=== PATIENT | female | born 1965 | race Caucasian/White ===

== ENCOUNTER 2019-08-26 07:22 | Day surgery (SDC) | payer MEDICAID ==
[2019-08-26] VITALS (9 sets, daily range): BP systolic 132–156; BP diastolic 81–109
[~2019-08-26] VITALS: Ht 167.6 cm; Wt 80.0 kg
[~2019-08-26 07:22] MED LIST: APIX5TAB3 PO; ASPI-1071 PO; ATOR10TA87 PO; CARV-50 PO; DIGO125T PO; FURO40TA4 PO; HYDR-3686 PO; LISINOPRIL PO; MELA3TAB64 PO; PANT-47 PO; SPIR25TA5 PO
[2019-08-26] MEDS ORDERED: diphenhydrAMINE 25mg capsule PO PRN (07:40)
[2019-08-26] MEDS ORDERED: ceFAZolin 1,000 MG/D5W 50ML IVPB Premixed bag IV ONE (07:40)
[2019-08-26] MEDS ORDERED: normal saline 1,000 ML IV SCH (07:40)
[2019-08-26] MEDS ORDERED: LORazepam 0.5 MG tablet PO PRN (07:40)
[2019-08-26] MEDS ORDERED: APIX5TAB3 PO (07:48)
[2019-08-26] MEDS ORDERED: POTA20TA19 PO (07:50)
[2019-08-26] MEDS ORDERED: LOSA25TA96 PO (07:53)
[2019-08-26] MEDS ORDERED: CARV-50 PO (07:55)
[2019-08-26] MEDS ORDERED: ASPI81TA52 PO (07:58)
[2019-08-26] MEDS ORDERED: LIDOcaine/PRILOcaine 5gm cream TP ONE (08:20)
[2019-08-26] MEDS ORDERED: proCHLORperazine 10 MG/2 ml inj ONE (09:02)
[2019-08-26] MEDS ORDERED: midazolam 2 mg/2 ml injection ONE ×2 (09:02→09:45)
[2019-08-26] MEDS ORDERED: LIDOcaine 1% (10mg/ml)w/preservative injection 20ml MDV ONE (09:03)
[2019-08-26] MEDS ORDERED: LIDOcaine 1% W/epiNEPHrine 1:100,000 20ml vial ONE (09:03)
[2019-08-26] MEDS ORDERED: vancomycin 1,000mg inj ONE (09:03)
[2019-08-26] MEDS ORDERED: fentaNYL/PF 50MCG/1 ML 2ML syringe ONE (09:03)
[2019-08-26] MEDS ORDERED: ceFAZolin 1000mg inj ONE (09:03)
[2019-08-26] MEDS ORDERED: iohexol 350MG/ML 100ml bottle IV ONE (09:04)
[2019-08-26] MEDS ORDERED: HYDROcodone/acetaminophen 5mg/325mg tablet PO PRN (11:00)
[2019-08-26] MEDS ORDERED: LORazepam 1 MG tablet PO PRN (11:00)
[2019-08-26] MEDS ORDERED: HYDROcodone/acetaminophen 10/325mg tab PO PRN (11:00)
[2019-08-26] MEDS ORDERED: ceFAZolin 1GM/D5W- ADD-VANTAGE 50 ML IV SCH (16:00)
== END 2019-08-26 14:15 | disposition home or self-care (01) ==
LOC: SSTAY O 07:22
PROVIDERS: ATTEND Internal Medicine Interventional Cardiology
DX: I42.8 Other cardiomyopathies (principal); I11.0 Hypertensive heart disease with heart failure; I50.30 Unspecified diastolic (congestive) heart failure; E78.5 Hyperlipidemia, unspecified; F17.210 Nicotine dependence, cigarettes, uncomplicated; I45.89 Other specified conduction disorders; I05.8 Other rheumatic mitral valve diseases; Z88.8 Allergy status to other drugs, medicaments and biological substances; Z79.899 Other long term (current) drug therapy; Z79.82 Long term (current) use of aspirin
CPT/HCPCS: 33249; 93005; 99152; 99153; C1722; C1769; C1896; J0690; J0780; J1644; J2001; J2250; J3010; J3370; J7030; Q0163; Q9967; A4565; A4620; A6258; C1786; C1898

== ENCOUNTER 2019-09-14 10:05 | Emergency (ER) | payer MEDICAID ==
[~2019-09-14] VITALS: Ht 167.6 cm; Wt 68.2 kg
[~2019-09-14 10:05] MED LIST changes: -ASPI-1071 PO; +ASPI81TA52 PO; -HYDR-3686 PO; -LISINOPRIL PO; +LOSA25TA96 PO; -MELA3TAB64 PO; +POTA20TA19 PO; -SPIR25TA5 PO
[2019-09-14] MEDS ORDERED: ipratropium/albuterol 3ml nebule NEB ONE (10:50)
[2019-09-14] MEDS ORDERED: normal saline 1000ML IV soln IV ONE (10:50)
[2019-09-14 11:20] LABS: BASOPHILS # (AUTO) 0.1 X10'3 (0-0.2); BASOPHILS % (AUTO) 1.2 % (0-1); EOSINOPHILS # (AUTO) 0.2 X10'3 (0-0.9); EOSINOPHILS % (AUTO) 2.7 % (0-6); HEMATOCRIT 38.9 % (35.0-45.0); LYMPHOCYTES # (AUTO) 1.2 X10'3 (1.1-4.8); LYMPHOCYTES % (AUTO) 16.3 % (21-51); MEAN CORPUSCULAR HEMOGLOBIN 28.8 PG (27.0-31.0); MEAN CORPUSCULAR HGB CONC 33.5 g/dL (33.0-36.5); MEAN CORPUSCULAR VOLUME 85.8 FL (78-98); MONOCYTES # (AUTO) 0.9 X10'3 (0-0.9); MONOCYTES % (AUTO) 12.5 % (2-12); NEUTROPHILS # (AUTO) 4.8 X10'3 (1.8-7.7); NEUTROPHILS % (AUTO) 67.3 % (42-75); PLATELET COUNT 159 X10'3 (140-440); RED BLOOD COUNT 4.54 X10'6 (4.20-5.60); RED CELL DISTRIBUTION WIDTH 15.6 % (11.5-14.5); WHITE BLOOD COUNT 7.2 X10'3 (4.5-11.0)
[2019-09-14 11:30] LABS: PARTIAL THROMBOPLASTIN TIME 27 SECONDS (22-32)
[2019-09-14 11:40] LABS: CLARITY,URINE CLOUDY (Clear); COLOR,URINE YELLOW (Yellow); GLUCOSE, URINE NEGATIVE (Neg); KETONES,URINE NEGATIVE (Neg); LEUKOCYTE ESTERASE ,URINE NEGATIVE (Neg); NITRITES, URINE NEGATIVE (Neg); OCCULT BLOOD,URINE NEGATIVE (Neg); PH,URINE 5.5 (4.8-8.0); PROTEIN,URINE 100 mg/dl (Neg)
[2019-09-14 11:47] LABS: UA COLLECTION TYPE CLN CATCH MIDSTREAM
[2019-09-14 11:48] LABS: ALANINE AMINOTRANSFERASE 20 U/L (12-78); ALBUMIN 3.6 G/DL (3.4-5.0); ALBUMIN/GLOBULIN RATIO 0.9 (1.1-1.5); ALKALINE PHOSPHATASE 59 IU/L (46-116); ANION GAP 8 (8-16); ASPARTATE AMINO TRANSFERASE 21 U/L (10-37); BILIRUBIN,TOTAL 0.8 MG/DL (0.1-1.0); BLOOD UREA NITROGEN 28 MG/DL (7-18); BUN/CREATININE RATIO 23.1 (6.6-38.0); CHLORIDE 106 MMOL/L (99-107); CREATININE 1.21 MG/DL (0.40-0.90); GLUCOSE 123 MG/DL (70-104); POTASSIUM 4.1 MMOL/L (3.5-5.1); SODIUM 141 MMOL/L (135-145); TOTAL CARBON DIOXIDE 26.8 MMOL/L (24-32); TOTAL PROTEIN 7.5 G/DL (6.4-8.2); eGFR 46 ML/MIN
[2019-09-14 11:49] LABS: SQUAMOUS EPITHELIAL CELL,UR MANY /LPF (FEW)
[2019-09-14 11:53] LABS: HYALINE CASTS 0-3 /LPF (NEGATIVE); MUCUS STRANDS FEW /LPF (Neg)
[2019-09-14 11:55] LABS: BACTERIA,URINE 1+ /HPF (Neg); RBC,URINE 0-2 /HPF (0-2); WBC,URINE 0-4 /HPF (0-4)
[2019-09-14] MEDS ORDERED: albuterol 2.5 MG/3 ML nebule NEB ONE (13:30)
[2019-09-14] MEDS ORDERED: DOXY100C76 PO (13:35)
[2019-09-14] MEDS ORDERED: TAM75C PO (13:35)
[2019-09-14] MEDS ORDERED: ALBU6.7H9 INH (13:35)
[2019-09-14] MEDS ORDERED: PRED20TA PO (13:35)
== END 2019-09-14 14:39 | disposition home or self-care (01) ==
LOC: ER 10:06
DX: J11.1 Influenza due to unidentified influenza virus with other respiratory manifestations (principal); J45.909 Unspecified asthma, uncomplicated; E11.9 Type 2 diabetes mellitus without complications; F41.9 Anxiety disorder, unspecified; I11.0 Hypertensive heart disease with heart failure; I50.9 Heart failure, unspecified; F12.90 Cannabis use, unspecified, uncomplicated; Z88.5 Allergy status to narcotic agent; Z79.82 Long term (current) use of aspirin; Z79.899 Other long term (current) drug therapy; Z87.891 Personal history of nicotine dependence
CPT/HCPCS: 36415; 71045; 80053; 81001; 83605; 84145; 85025; 85610; 85730; 87040; 87502; 87503; 93005; 94640; 99285; J7030

== ENCOUNTER 2019-09-16 06:32 | Day surgery (SDC) | payer MEDICAID ==
[2019-09-12 15:59] LABS: BASOPHILS # (AUTO) 0.1 X10'3 (0-0.2); EOSINOPHILS # (AUTO) 0.1 X10'3 (0-0.9); EOSINOPHILS % (AUTO) 1.2 % (0-6); HEMATOCRIT 40.9 % (35.0-45.0); HEMOGLOBIN 13.7 g/dl (12.0-16.0); LYMPHOCYTES # (AUTO) 1.1 X10'3 (1.1-4.8); LYMPHOCYTES % (AUTO) 12.3 % (21-51); MEAN CORPUSCULAR HEMOGLOBIN 28.3 PG (27.0-31.0); MEAN CORPUSCULAR HGB CONC 33.4 g/dL (33.0-36.5); MEAN CORPUSCULAR VOLUME 84.8 FL (78-98); MEAN PLATELET VOLUME 9.4 FL (7.4-10.4); MONOCYTES # (AUTO) 0.6 X10'3 (0-0.9); MONOCYTES % (AUTO) 6.7 % (2-12); NEUTROPHILS # (AUTO) 6.9 X10'3 (1.8-7.7); NEUTROPHILS % (AUTO) 78.8 % (42-75); PLATELET COUNT 171 X10'3 (140-440); RED BLOOD COUNT 4.83 X10'6 (4.20-5.60); RED CELL DISTRIBUTION WIDTH 15.9 % (11.5-14.5); WHITE BLOOD COUNT 8.8 X10'3 (4.5-11.0)
[2019-09-12 16:05] LABS: ALBUMIN 3.8 G/DL (3.4-5.0); ANION GAP 8 (8-16); BLOOD UREA NITROGEN 28 MG/DL (7-18); BUN/CREATININE RATIO 23.7 (6.6-38.0); CALCIUM 9.2 MG/DL (8.5-10.1); CHLORIDE 105 MMOL/L (99-107); CREATININE 1.18 MG/DL (0.40-0.90); GLUCOSE 128 MG/DL (70-104); SODIUM 141 MMOL/L (135-145); TOTAL CARBON DIOXIDE 28.2 MMOL/L (24-32); eGFR 48 ML/MIN
[2019-09-12 16:10] LABS: PARTIAL THROMBOPLASTIN TIME 27 SECONDS (22-32)
[~2019-09-16] VITALS: Ht 167.6 cm; Wt 82.8 kg
[2019-09-16] VITALS (10 sets, daily range): BP systolic 123–140; BP diastolic 64–100
[~2019-09-16 06:32] MED LIST changes: +ALBU6.7H9 INH; +DOXY100C76 PO; +PRED20TA PO; +TAM75C PO
[2019-09-16] MEDS ORDERED: normal saline 1,000 ML IV SCH (06:55)
[2019-09-16] MEDS ORDERED: LORazepam 0.5 MG tablet PO PRN (06:55)
[2019-09-16] MEDS ORDERED: diphenhydrAMINE 25mg capsule PO PRN (06:55)
[2019-09-16] MEDS ORDERED: LISI2.5T2 PO (07:55)
[2019-09-16] MEDS ORDERED: CEPH-572 PO (07:55)
[2019-09-16] MEDS ORDERED: fentaNYL/PF 50MCG/1 ML 2ML syringe ONE (08:10)
[2019-09-16] MEDS ORDERED: midazolam 2 mg/2 ml injection ONE (08:11)
[2019-09-16] MEDS ORDERED: iohexol 350MG/ML 100ml bottle IV ONE (08:11)
[2019-09-16] MEDS ORDERED: iohexol 350 MG/ML 50ML vial IV ONE (08:11)
[2019-09-16] MEDS ORDERED: LIDOcaine 1% (10mg/ml)w/preservative injection 20ml MDV ONE (08:11)
[2019-09-16] MEDS ORDERED: verapamil 2.5 mg/ml inj IV ONE (08:22)
[2019-09-16] MEDS ORDERED: nitroGLYCERIN-Tridil 50MG/D5W 250 ML IV ONE (08:22)
[2019-09-16] MEDS ORDERED: heparin 1,000unit/ml 10ml vial 10 ML ONE (08:23)
[2019-09-16] MEDS ORDERED: ondansetron/PF 4mg/2ml inj IV PRN (09:25)
[2019-09-16] MEDS ORDERED: HYDROcodone/acetaminophen 10/325mg tab PO PRN (09:25)
[2019-09-16] MEDS ORDERED: acetaminophen 325mg tablet PO PRN (09:25)
[2019-09-16] MEDS ORDERED: HYDROcodone/acetaminophen 5mg/325mg tablet PO PRN (09:25)
== END 2019-09-16 12:26 | disposition home or self-care (01) ==
LOC: SSTAY O 06:32
PROVIDERS: ATTEND Internal Medicine Interventional Cardiology
DX: I34.0 Nonrheumatic mitral (valve) insufficiency (principal); I11.0 Hypertensive heart disease with heart failure; I50.9 Heart failure, unspecified; I42.0 Dilated cardiomyopathy; Z88.8 Allergy status to other drugs, medicaments and biological substances; Z79.899 Other long term (current) drug therapy
CPT/HCPCS: 36415; 80048; 85025; 85610; 85730; 93458; C1769; C1894; J1644; J2001; J2250; J3010; J7030; Q0163; Q9967; 99152; A4620; A5120; J3490

== ENCOUNTER 2019-09-18 11:39 | Inpatient (IN) | payer MEDICAID ==
[~2019-09-18] VITALS: Ht 167.6 cm; Wt 89.6 kg
[~2019-09-18 11:39] MED LIST changes: +CEPH-572 PO; +LISI2.5T2 PO
[2019-09-18 12:28] LABS: BASOPHILS # (AUTO) 0.1 X10'3 (0-0.2); BASOPHILS % (AUTO) 0.8 % (0-1); EOSINOPHILS % (AUTO) 0.1 % (0-6); HEMATOCRIT 41.1 % (35.0-45.0); HEMOGLOBIN 13.4 g/dl (12.0-16.0); LYMPHOCYTES # (AUTO) 2.9 X10'3 (1.1-4.8); LYMPHOCYTES % (AUTO) 21.7 % (21-51); MEAN CORPUSCULAR HGB CONC 32.6 g/dL (33.0-36.5); MEAN CORPUSCULAR VOLUME 85.9 FL (78-98); MEAN PLATELET VOLUME 9.1 FL (7.4-10.4); MONOCYTES # (AUTO) 0.9 X10'3 (0-0.9); MONOCYTES % (AUTO) 6.4 % (2-12); NEUTROPHILS # (AUTO) 9.7 X10'3 (1.8-7.7); PLATELET COUNT 198 X10'3 (140-440); RED BLOOD COUNT 4.79 X10'6 (4.20-5.60); RED CELL DISTRIBUTION WIDTH 16.2 % (11.5-14.5); WHITE BLOOD COUNT 13.6 X10'3 (4.5-11.0)
[2019-09-18 12:43] LABS: ALANINE AMINOTRANSFERASE 28 U/L (12-78); ALBUMIN 3.5 G/DL (3.4-5.0); ALBUMIN/GLOBULIN RATIO 0.9 (1.1-1.5); ALKALINE PHOSPHATASE 67 IU/L (46-116); ANION GAP 5 (8-16); ASPARTATE AMINO TRANSFERASE 19 U/L (10-37); BILIRUBIN,TOTAL 0.6 MG/DL (0.1-1.0); BLOOD UREA NITROGEN 40 MG/DL (7-18); BUN/CREATININE RATIO 28.4 (6.6-38.0); CHLORIDE 109 MMOL/L (99-107); CREATININE 1.41 MG/DL (0.40-0.90); GLUCOSE 115 MG/DL (70-104); POTASSIUM 3.7 MMOL/L (3.5-5.1); SODIUM 142 MMOL/L (135-145); TOTAL CARBON DIOXIDE 28.1 MMOL/L (24-32); TOTAL PROTEIN 7.4 G/DL (6.4-8.2); eGFR 39 ML/MIN
[2019-09-18] MEDS ORDERED: insulin Lispro (HumaLOG) vial - multi-dose SQ SCH (16:05)
[2019-09-18] MEDS ORDERED: potassium CL 10mEq/100ml bag 100 ML IV PRN ×2 (16:05)
[2019-09-18] MEDS ORDERED: acetaminophen 325mg tablet PO PRN (16:05)
[2019-09-18] MEDS ORDERED: mag hydrox/Alum hydrox/simeth 30ml oral suspension PO PRN (16:05)
[2019-09-18] MEDS ORDERED: magnesium 4gm in 100ml NS 100 ML IV PRN (16:05)
[2019-09-18] MEDS ORDERED: ipratropium/albuterol 3ml nebule NEB PRN (16:05)
[2019-09-18] MEDS ORDERED: MESSAGE TO PHARMACY PO ONE (16:05)
[2019-09-18] MEDS ORDERED: glucagon, human recombinant 1mg kit SUBCUT PRN (16:05)
[2019-09-18] MEDS ORDERED: potassium Cl 20 mEq SR tablet PO PRN (16:05)
[2019-09-18] MEDS ORDERED: docusate sod 100mg capsule PO PRN (16:05)
[2019-09-18] MEDS ORDERED: dextrose 50%-water 50ml dispensing syringe IV PRN ×2 (16:05)
[2019-09-18] MEDS ORDERED: dextrose ORAL solution 15 GM/59 ML bottle PO PRN ×2 (16:05)
[2019-09-18] MEDS ORDERED: magnesium 2GM in 50ml NS 50 ML IV PRN (16:05)
[2019-09-18] MEDS ORDERED: ondansetron/PF 4mg/2ml inj IV PRN (16:05)
[2019-09-18] MEDS ORDERED: furosemide 10 MG/1 ML 10ml inj IV ONE (16:40)
--- NOTE | 2019-09-18 19:14 | NUR ---
Patient in room ED 14. I have received report from Felecia BENZ and had the opportunity to ask questions and assume patient care.
[2019-09-18 19:51] VITALS: BP 147/96
[2019-09-18] MEDS: oseltamivir phos 75mg capsule PO SCH (20:00)
[2019-09-18] MEDS: K and/or MAG REPLACEMENT MC SCH (20:00)
[2019-09-18] MEDS: carvedilol 6.25mg tablet PO SCH (20:50)
[2019-09-18] MEDS: furosemide 10 MG/1 ML 10ml inj IV SCH (20:50)
[2019-09-18] MEDS: apixaban 5mg tablet PO SCH (20:50)
[2019-09-18] MEDS: insulin glargine (Lantus) pen - multi-dose SQ SCH (20:57)
--- NOTE | 2019-09-18 21:57 | NUR ---
Patient arrived to the floor at 1950. VSS. MRSA swab collected. Darting complete. Skin check complete. Oriented patient to room, medication times, meal times, vital signs times, and unit policies.
[2019-09-18 22:00] VITALS: BP 133/84
[2019-09-18] MEDS ORDERED: temazepam 15mg capsule PO PRN (22:10)
[2019-09-19 00:54] LABS: ALANINE AMINOTRANSFERASE 30 U/L (12-78); ALBUMIN 3.8 G/DL (3.4-5.0); ALKALINE PHOSPHATASE 68 IU/L (46-116); ANION GAP 7 (8-16); ASPARTATE AMINO TRANSFERASE 41 U/L (10-37); BLOOD UREA NITROGEN 41 MG/DL (7-18); BUN/CREATININE RATIO 28.3 (6.6-38.0); CALCIUM 9.3 MG/DL (8.5-10.1); CHLORIDE 104 MMOL/L (99-107); CREATININE 1.45 MG/DL (0.40-0.90); GLUCOSE 110 MG/DL (70-104); MAGNESIUM 1.9 MG/DL (1.5-2.4); POTASSIUM 4.3 MMOL/L (3.5-5.1); SODIUM 140 MMOL/L (135-145); TOTAL CARBON DIOXIDE 28.8 MMOL/L (24-32); TOTAL PROTEIN 7.8 G/DL (6.4-8.2); eGFR 37 ML/MIN
[2019-09-19 01:23] LABS: BASOPHILS # (AUTO) 0.1 X10'3 (0-0.2); BASOPHILS % (AUTO) 1.2 % (0-1); EOSINOPHILS # (AUTO) 0.1 X10'3 (0-0.9); EOSINOPHILS % (AUTO) 0.8 % (0-6); LYMPHOCYTES # (AUTO) 3.1 X10'3 (1.1-4.8); LYMPHOCYTES % (AUTO) 29.5 % (21-51); MEAN CORPUSCULAR HEMOGLOBIN 28.8 PG (27.0-31.0); MEAN CORPUSCULAR HGB CONC 33.4 g/dL (33.0-36.5); MEAN CORPUSCULAR VOLUME 86.4 FL (78-98); MEAN PLATELET VOLUME 9.5 FL (7.4-10.4); MONOCYTES # (AUTO) 0.6 X10'3 (0-0.9); MONOCYTES % (AUTO) 5.6 % (2-12); NEUTROPHILS # (AUTO) 6.7 X10'3 (1.8-7.7); NEUTROPHILS % (AUTO) 62.9 % (42-75); PLATELET COUNT 191 X10'3 (140-440); RED BLOOD COUNT 4.86 X10'6 (4.20-5.60); RED CELL DISTRIBUTION WIDTH 16.5 % (11.5-14.5); WHITE BLOOD COUNT 10.7 X10'3 (4.5-11.0)
[2019-09-19 02:00] VITALS: BP 112/79
--- NOTE | 2019-09-19 02:22 | NUR ---
PAGER ID: [phone] MESSAGE: Lilia Gonsalez [phone]: Patient is requesting something for anxiety. -Hafsa BENZ [phone]
[2019-09-19] MEDS: LORazepam 1 MG tablet PO PRN (02:29)
[2019-09-19 06:00] VITALS: BP 133/79
--- NOTE | 2019-09-19 06:17 | NUR ---
Problems reprioritized. Patient report given, questions answered & plan of care reviewed with Jimbo RN.
--- NOTE | 2019-09-19 06:22 | NUR ---
Patient in room PCU 3024. I have received report from DEMAR JOHNSON and had the opportunity to ask questions and assume patient care.
[2019-09-19] MEDS: furosemide 10 MG/1 ML 10ml inj IV SCH ×2 (07:56→19:37)
[2019-09-19] MEDS: apixaban 5mg tablet PO SCH ×2 (07:59→19:37)
[2019-09-19] MEDS: carvedilol 6.25mg tablet PO SCH (07:59)
[2019-09-19] MEDS: losartan 25mg tablet PO SCH (07:59)
[2019-09-19] MEDS: K and/or MAG REPLACEMENT MC SCH ×2 (08:00→19:57)
[2019-09-19] MEDS: digoxin 125mcg (0.125mg) tablet PO SCH (08:02)
[2019-09-19] MEDS: pantoprazole 40mg Tablet.DR PO SCH (08:03)
[2019-09-19] MEDS: atorvastatin 10mg tablet PO SCH (08:03)
[2019-09-19] MEDS: oseltamivir phos 75mg capsule PO SCH ×2 (08:04→19:37)
[2019-09-19] MEDS ORDERED: carvedilol 6.25mg tablet PO ONE (09:05)
[2019-09-19 11:00] VITALS: BP 114/76
[2019-09-19 18:00] VITALS: BP 127/88
--- NOTE | 2019-09-19 18:24 | NUR ---
Problems reprioritized. Patient report given, questions answered & plan of care reviewed with DEMAR JOHNSON.
--- NOTE | 2019-09-19 18:30 | NUR ---
Patient in room PCU 3024. I have received report from Jimbo BENZ and had the opportunity to ask questions and assume patient care.
[2019-09-19] MEDS: carVEDilol 12.5mg tablet PO SCH (19:37)
[2019-09-19] MEDS ORDERED: docusate sod 100mg capsule PO SCH (20:00)
[2019-09-19] MEDS: insulin glargine (Lantus) pen - multi-dose SQ SCH (21:00)
--- NOTE | 2019-09-19 21:11 | NUR ---
Patient refused blood glucose check. Notified night time Dr Nader CONTRERAS. No new orders at this time.
[2019-09-19 22:00] VITALS: BP 109/70
[2019-09-20 01:59] VITALS: BP 118/82
[2019-09-20 06:00] VITALS: BP 115/94
--- NOTE | 2019-09-20 06:14 | NUR ---
Problems reprioritized. Patient report given, questions answered & plan of care reviewed with Jimbo RN.
--- NOTE | 2019-09-20 06:19 | NUR ---
Patient in room PCU 3024. I have received report from DEMAR JOHNSON and had the opportunity to ask questions and assume patient care.
[2019-09-20 06:31] LABS: BASOPHILS # (AUTO) 0.1 X10'3 (0-0.2); EOSINOPHILS # (AUTO) 0.2 X10'3 (0-0.9); EOSINOPHILS % (AUTO) 1.8 % (0-6); HEMATOCRIT 43.5 % (35.0-45.0); HEMOGLOBIN 14.5 g/dl (12.0-16.0); LYMPHOCYTES # (AUTO) 2.1 X10'3 (1.1-4.8); LYMPHOCYTES % (AUTO) 23.3 % (21-51); MEAN CORPUSCULAR HEMOGLOBIN 28.5 PG (27.0-31.0); MEAN CORPUSCULAR HGB CONC 33.2 g/dL (33.0-36.5); MEAN CORPUSCULAR VOLUME 85.7 FL (78-98); MEAN PLATELET VOLUME 9.2 FL (7.4-10.4); MONOCYTES # (AUTO) 0.5 X10'3 (0-0.9); MONOCYTES % (AUTO) 5.8 % (2-12); NEUTROPHILS # (AUTO) 6.1 X10'3 (1.8-7.7); NEUTROPHILS % (AUTO) 68.1 % (42-75); PLATELET COUNT 210 X10'3 (140-440); RED BLOOD COUNT 5.08 X10'6 (4.20-5.60); RED CELL DISTRIBUTION WIDTH 16.7 % (11.5-14.5); WHITE BLOOD COUNT 8.9 X10'3 (4.5-11.0)
[2019-09-20 06:49] LABS: ALANINE AMINOTRANSFERASE 22 U/L (12-78); ALBUMIN 3.3 G/DL (3.4-5.0); ALBUMIN/GLOBULIN RATIO 0.8 (1.1-1.5); ALKALINE PHOSPHATASE 63 IU/L (46-116); ANION GAP 9 (8-16); ASPARTATE AMINO TRANSFERASE 22 U/L (10-37); BILIRUBIN,TOTAL 1.3 MG/DL (0.1-1.0); BLOOD UREA NITROGEN 38 MG/DL (7-18); CALCIUM 9.1 MG/DL (8.5-10.1); CHLORIDE 104 MMOL/L (99-107); CREATININE 1.52 MG/DL (0.40-0.90); GLUCOSE 95 MG/DL (70-104); MAGNESIUM 1.8 MG/DL (1.5-2.4); POTASSIUM 3.2 MMOL/L (3.5-5.1); SODIUM 143 MMOL/L (135-145); TOTAL CARBON DIOXIDE 30.2 MMOL/L (24-32); TOTAL PROTEIN 7.2 G/DL (6.4-8.2); eGFR 36 ML/MIN
[2019-09-20] MEDS: K and/or MAG REPLACEMENT MC SCH ×2 (07:49→20:59)
[2019-09-20] MEDS: furosemide 10 MG/1 ML 10ml inj IV SCH ×2 (07:49→20:50)
[2019-09-20] MEDS: carVEDilol 12.5mg tablet PO SCH ×2 (07:50→20:50)
[2019-09-20] MEDS: losartan 25mg tablet PO SCH (07:51)
[2019-09-20] MEDS: apixaban 5mg tablet PO SCH (07:51)
[2019-09-20] MEDS: digoxin 125mcg (0.125mg) tablet PO SCH (07:52)
[2019-09-20] MEDS: atorvastatin 10mg tablet PO SCH (07:53)
[2019-09-20] MEDS: pantoprazole 40mg Tablet.DR PO SCH (07:55)
[2019-09-20] MEDS: oseltamivir phos 75mg capsule PO SCH ×2 (07:58→20:00)
[2019-09-20] MEDS: potassium Cl 20 mEq SR tablet PO PRN ×2 (07:59→17:04)
--- NOTE | 2019-09-20 09:26 | NUR ---
REFUSED ACCUCHECK Addendum: 09/20/19 at 9052 by Kurtis Arceo RN Amended: Links added.
--- NOTE | 2019-09-20 09:50 | NUR ---
CALLED REPORT TO DEMAR TRENT. TO TRANSFER TO ACCE .
--- NOTE | 2019-09-20 10:40 | NUR ---
TRANSFERRED TO ROOM 307/ACCE VIA nAh STRONG.
[2019-09-20] MEDS ORDERED: DOBUTamine-DoBUTrex 500mg/D5W 250 ML IV SCH (11:15)
--- NOTE | 2019-09-20 12:14 | NUR ---
Pt. received a low dose Dobutamine echo. Pt. tolerated well. Vitals remained stable. Dobutamine now off.
[2019-09-20 14:00] VITALS: BP 107/75
[2019-09-20 18:00] VITALS: BP 132/78
--- NOTE | 2019-09-20 18:00 | NUR ---
Patient in room MED 307. I have received report from Eusebio BENZ and had the opportunity to ask questions and assume patient care.
--- NOTE | 2019-09-20 18:10 | NUR ---
Problems reprioritized. Patient report given, questions answered & plan of care reviewed with Huong BENZ
--- NOTE | 2019-09-20 19:08 | NUR ---
Dr. Lara in to see the patient. Patient had questions regarding taking tamiflu. Looking back at previous admits, Influenza swab done and [facility] where A&B RNA were not detected. Dr. Lara aware of these results.
[2019-09-20] MEDS ORDERED: enoxaparin 100mg/ml syringe SUBCUT SCH (20:00)
[2019-09-20] MEDS: enoxaparin 40mg/0.4ml syringe SQ SCH (20:52)
[2019-09-20] MEDS: enoxaparin 30mg/0.3ml syringe SUBCUT SCH (20:53)
--- NOTE | 2019-09-20 21:00 | NUR ---
Discussed dc'ing tamiflu w/Karla melendez dc'd on day shift, will discontinue insulin on SEP per protocol.
[2019-09-20 22:00] VITALS: BP 100/71
[2019-09-20] MEDS: LORazepam 1 MG tablet PO PRN (23:58)
[2019-09-21 02:00] VITALS: BP 117/65
--- NOTE | 2019-09-21 03:57 | NUR ---
PATIENTS O2 SATURATIONS DIPPING TO MID 80'S AND RETURNING TO MID 90'S FREQUENTLY. ATTEMPTED TO ADMINISTER OXYGEN VIA NASAL CANNULA, PATIENT REFUSED. ADAMANTLY STATED SHE COULD NOT SLEEP WITH NASAL CANNULA IN NOSE.EDUCATED PATIENT REGARDING NEED TO MAINTAIN OXYGEN LEVELS ABOVE 90%; PATIENT STILL REFUSED O2. Addendum: 09/21/19 at 0416 by Huong Montenegro RN PATIENT'S O2 SATS SUSTAINED IN 70'S, REEDUCATED PATIENT REGARDING NEED FOR 02, PATIENT AGREED. PATIENTS SATS NOW IN MID 90'S SUSTAINING
[2019-09-21 06:00] VITALS: BP 114/72
--- NOTE | 2019-09-21 06:00 | NUR ---
Patient in room MED 307. I have received report from DEMAR Borja and had the opportunity to ask questions and assume patient care.
[2019-09-21 06:11] LABS: BASOPHILS # (AUTO) 0.1 X10'3 (0-0.2); BASOPHILS % (AUTO) 1.3 % (0-1); EOSINOPHILS # (AUTO) 0.3 X10'3 (0-0.9); EOSINOPHILS % (AUTO) 3.2 % (0-6); HEMATOCRIT 45.8 % (35.0-45.0); HEMOGLOBIN 15.3 g/dl (12.0-16.0); LYMPHOCYTES # (AUTO) 2.5 X10'3 (1.1-4.8); LYMPHOCYTES % (AUTO) 27.1 % (21-51); MEAN CORPUSCULAR HEMOGLOBIN 28.7 PG (27.0-31.0); MEAN CORPUSCULAR HGB CONC 33.4 g/dL (33.0-36.5); MEAN CORPUSCULAR VOLUME 85.8 FL (78-98); MEAN PLATELET VOLUME 8.7 FL (7.4-10.4); MONOCYTES # (AUTO) 0.7 X10'3 (0-0.9); NEUTROPHILS # (AUTO) 5.7 X10'3 (1.8-7.7); NEUTROPHILS % (AUTO) 61.4 % (42-75); PLATELET COUNT 212 X10'3 (140-440); RED BLOOD COUNT 5.34 X10'6 (4.20-5.60); RED CELL DISTRIBUTION WIDTH 16.4 % (11.5-14.5); WHITE BLOOD COUNT 9.3 X10'3 (4.5-11.0)
[2019-09-21 06:24] LABS: ALANINE AMINOTRANSFERASE 19 U/L (12-78); ALBUMIN 3.4 G/DL (3.4-5.0); ALBUMIN/GLOBULIN RATIO 0.8 (1.1-1.5); ALKALINE PHOSPHATASE 67 IU/L (46-116); ANION GAP 10 (8-16); ASPARTATE AMINO TRANSFERASE 19 U/L (10-37); BILIRUBIN,TOTAL 0.8 MG/DL (0.1-1.0); BLOOD UREA NITROGEN 41 MG/DL (7-18); BUN/CREATININE RATIO 30.8 (6.6-38.0); CALCIUM 9.3 MG/DL (8.5-10.1); CHLORIDE 103 MMOL/L (99-107); CREATININE 1.33 MG/DL (0.40-0.90); GLUCOSE 122 MG/DL (70-104); MAGNESIUM 2.1 MG/DL (1.5-2.4); POTASSIUM 3.7 MMOL/L (3.5-5.1); SODIUM 142 MMOL/L (135-145); TOTAL CARBON DIOXIDE 29.2 MMOL/L (24-32); TOTAL PROTEIN 7.5 G/DL (6.4-8.2); eGFR 41 ML/MIN
--- NOTE | 2019-09-21 06:32 | NUR ---
Problems reprioritized. Patient report given, questions answered & plan of care reviewed with Genet BENZ.
[2019-09-21] MEDS ORDERED: potassium Cl 20mEq/100mL bag 100 ML IV PRN (07:10)
[2019-09-21] MEDS ORDERED: MESSAGE TO NURSING PO ONE ×5 (07:10→10:00)
[2019-09-21] MEDS ORDERED: magnesium 4gm in 100ml NS 100 ML IV PRN (07:10)
[2019-09-21] MEDS ORDERED: magnesium 2GM in 50ml NS 50 ML IV PRN (07:10)
[2019-09-21] MEDS ORDERED: dextrose 50%-water 50ml dispensing syringe IV PRN (07:10)
[2019-09-21] MEDS ORDERED: potassium Cl 20 mEq SR tablet PO PRN (07:10)
[2019-09-21] MEDS: K and/or MAG REPLACEMENT MC SCH ×2 (08:00→20:00)
[2019-09-21] MEDS ORDERED: metoprolol tartrate 12.5mg (1/2 tablet) PO SCH (08:00)
[2019-09-21] MEDS: pantoprazole 40mg Tablet.DR PO SCH (08:11)
[2019-09-21] MEDS: digoxin 125mcg (0.125mg) tablet PO SCH (08:11)
[2019-09-21] MEDS: atorvastatin 10mg tablet PO SCH (08:11)
[2019-09-21] MEDS: carVEDilol 12.5mg tablet PO SCH ×2 (08:12→22:08)
[2019-09-21] MEDS: losartan 25mg tablet PO SCH (08:12)
[2019-09-21] MEDS: furosemide 20 MG/2 ML vial IV SCH ×2 (08:12→22:09)
[2019-09-21] MEDS: enoxaparin 30mg/0.3ml syringe SUBCUT SCH (08:13)
[2019-09-21] MEDS: enoxaparin 40mg/0.4ml syringe SQ SCH (08:13)
[2019-09-21 08:52] LABS: PARTIAL THROMBOPLASTIN TIME 24 SECONDS (22-32)
[2019-09-21 11:00] VITALS: BP 119/78
--- NOTE | 2019-09-21 14:34 | NUR ---
Paged respiratory: "FYI 307 ABG ordered. Thanks! Alyse ACCE [phone]"
[2019-09-21 15:00] VITALS: BP 103/64
--- NOTE | 2019-09-21 15:05 | NUR ---
Received report from DEMAR Modi in short stay. Patient is said to have had a heart cath performed by Dr. Benitez. Found to have multi-vessel disease. 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 Earliest time patient may sit up is 1730. Dr. Lion has consulted and patient is scheduled for CABG second case on 09/22/2019. Addendum: 09/21/19 at 1837 by Ellie Reaves RN Note for another patient.
[2019-09-21 15:21] LABS: ABG BASE EXCESS 2.3 mmol/L (-2.0-3.0); ABG OXYGEN SATURATION 94.2 % (95-98); ABG PCO2 (T) 41.9 mmHg (35.0-45.0); ABG PH (T) 7.427 (7.350-7.450); ABG PO2 (T) 73.1 mmHg (83-108); ALLEN'S TEST POSITIVE; FCOHb 0.5 % (0.5-1.5); FMetHb 0.3 % (0.3-1.12); FO2Hb 93.4 % (94-100); TOTAL HEMOGLOBIN 15.8 G/dl (12.0-16.0)
[2019-09-21 16:47] LABS: CLARITY,URINE CLEAR (Clear); COLOR,URINE YELLOW (Yellow); GLUCOSE, URINE NEGATIVE (Neg); KETONES,URINE NEGATIVE (Neg); LEUKOCYTE ESTERASE ,URINE NEGATIVE (Neg); NITRITES, URINE NEGATIVE (Neg); OCCULT BLOOD,URINE NEGATIVE (Neg); PROTEIN,URINE NEGATIVE (Neg); UROBILINOGEN,URINE 0.2 E.U/dL (0.2-1.0)
[2019-09-21 17:15] LABS: UA COLLECTION TYPE CLN CATCH MIDSTREAM
[2019-09-21 18:00] VITALS: BP 112/91
--- NOTE | 2019-09-21 18:00 | NUR ---
Patient in room MED 307. I have received report from Adela BENZ and had the opportunity to ask questions and assume patient care.
--- NOTE | 2019-09-21 18:32 | NUR ---
Problems reprioritized. Patient report given, questions answered & plan of care reviewed with DEMAR Max.
[2019-09-21 22:00] VITALS: BP 99/61
[2019-09-21] MEDS: mupirocin 2% nasal ointment 1gm UD NS SCH (22:09)
[2019-09-22] VITALS (19 sets, daily range): BP systolic 87–130; BP diastolic 47–80
[2019-09-22 04:25] LABS: BASOPHILS # (AUTO) 0.1 X10'3 (0-0.2); EOSINOPHILS # (AUTO) 0.2 X10'3 (0-0.9); EOSINOPHILS % (AUTO) 2.8 % (0-6); HEMATOCRIT 44.2 % (35.0-45.0); HEMOGLOBIN 14.8 g/dl (12.0-16.0); LYMPHOCYTES # (AUTO) 2.4 X10'3 (1.1-4.8); MEAN CORPUSCULAR HEMOGLOBIN 28.6 PG (27.0-31.0); MEAN CORPUSCULAR HGB CONC 33.5 g/dL (33.0-36.5); MEAN CORPUSCULAR VOLUME 85.2 FL (78-98); MEAN PLATELET VOLUME 8.5 FL (7.4-10.4); MONOCYTES # (AUTO) 0.6 X10'3 (0-0.9); MONOCYTES % (AUTO) 7.2 % (2-12); NEUTROPHILS # (AUTO) 5.4 X10'3 (1.8-7.7); PLATELET COUNT 233 X10'3 (140-440); RED BLOOD COUNT 5.18 X10'6 (4.20-5.60); RED CELL DISTRIBUTION WIDTH 16.2 % (11.5-14.5); WHITE BLOOD COUNT 8.8 X10'3 (4.5-11.0)
[2019-09-22 04:37] LABS: ALANINE AMINOTRANSFERASE 20 U/L (12-78); ALBUMIN 3.3 G/DL (3.4-5.0); ALBUMIN/GLOBULIN RATIO 0.8 (1.1-1.5); ALKALINE PHOSPHATASE 62 IU/L (46-116); ANION GAP 8 (8-16); ASPARTATE AMINO TRANSFERASE 18 U/L (10-37); BILIRUBIN,TOTAL 0.7 MG/DL (0.1-1.0); BLOOD UREA NITROGEN 45 MG/DL (7-18); BUN/CREATININE RATIO 37.2 (6.6-38.0); CALCIUM 8.9 MG/DL (8.5-10.1); CHLORIDE 103 MMOL/L (99-107); CREATININE 1.21 MG/DL (0.40-0.90); GLUCOSE 99 MG/DL (70-104); MAGNESIUM 2.1 MG/DL (1.5-2.4); POTASSIUM 3.7 MMOL/L (3.5-5.1); SODIUM 140 MMOL/L (135-145); TOTAL CARBON DIOXIDE 28.9 MMOL/L (24-32); TOTAL PROTEIN 7.2 G/DL (6.4-8.2); eGFR 46 ML/MIN
[2019-09-22] MEDS: carVEDilol 12.5mg tablet PO SCH (04:56)
[2019-09-22] MEDS: mupirocin 2% nasal ointment 1gm UD NS SCH ×2 (04:57→20:49)
[2019-09-22] MEDS ORDERED: ROPIVAcaine 0.5% (5mg/ml) 30ml vial ONE (05:07)
[2019-09-22] MEDS ORDERED: ceFAZolin 1000mg inj ONE (05:07)
[2019-09-22] MEDS ORDERED: gabapentin 400mg capsule PO ONE (05:30)
[2019-09-22] MEDS ORDERED: cefazolin/dext.iso 2gm/50ml 50 ML IV ONE (05:30)
[2019-09-22] MEDS ORDERED: vancomycin/NS 1 GM ADD-VANTAGE 250 ML IV ONE (05:30)
[2019-09-22] MEDS ORDERED: MALTODEXTRIN/FRUCTOSE 0.68 KCAL/ML LIQUID 296ML BOTTLE PO ONE (05:30)
[2019-09-22] MEDS ORDERED: insulin glargine (Lantus) pen - multi-dose SQ PRN ×2 (05:30→10:35)
[2019-09-22] MEDS ORDERED: LORazepam 2 mg/ml vial IV ONE (06:00)
[2019-09-22] MEDS ORDERED: famotidine 20mg tablet PO ONE (06:00)
--- NOTE | 2019-09-22 06:18 | NUR ---
Problems reprioritized. Patient report given, questions answered & plan of care reviewed with Gi BENZ.
--- NOTE | 2019-09-22 06:30 | NUR ---
patient off unit to CVOR
[2019-09-22] MEDS ORDERED: DOPamine/D5W 400mg/250ml bag IV ONE (06:38)
[2019-09-22] MEDS ORDERED: acetaminophen 1000 MG/100ml vial IV ONE (06:38)
[2019-09-22] MEDS ORDERED: protamine sulf. 10mg/ml inj. IV ONE (06:38)
[2019-09-22] MEDS ORDERED: sevoflurane 250ml liquid IH ONE (06:38)
[2019-09-22] MEDS ORDERED: heparin 1,000 units/ml 10ml inj ONE (06:38)
[2019-09-22] MEDS ORDERED: MIDAZolam 5mg/5ml vial ONE (06:41)
[2019-09-22] MEDS ORDERED: SUFENTANIL CITRATE 50 MCG/ML 2ml ampule IV ONE (06:41)
[2019-09-22 07:21] LABS: ABG BASE EXCESS 0.9 mmol/L (-2.0-3.0); ABG HCO3 26.2 mmol/L (22.0-26.0); ABG OXYGEN SATURATION 97.1 % (95-98); ABG PH 7.392 (7.350-7.450); ABG PO2 91.8 mmHg (60.0-100.0); CL (ABG) 101 mmol/L (99-107); FCOHb 1.1 % (0.5-1.5); FMetHb 0.2 % (0.3-1.12); FO2Hb 95.8 % (94-100); GLUCOSE (ABG) 139 mg/dl (70-104); IONIZED CA (ABG) 1.15 mmol/L (1.03-1.32); K (ABG) 3.4 mmol/L (3.3-5.1); NA (ABG) 138 mmol/L (135-145); TOTAL HEMOGLOBIN 14.8 G/dl (12.0-16.0)
[2019-09-22 07:45] LABS: ABG BASE EXCESS VENOUS -1.8 mmol/L; ABG HCO3 VENOUS 25.2 mmol/L; ABG PCO2 VENOUS 52.2 mmHg; CL (ABG) 96 mmol/L (99-107); GLUCOSE (ABG) 135 mg/dl (70-104); IONIZED CA (ABG) 1.04 mmol/L (1.03-1.32); K (ABG) 3.2 mmol/L (3.3-5.1); NA (ABG) 130 mmol/L (135-145); TOTAL HEMOGLOBIN 13.2 G/dl (12.0-16.0)
[2019-09-22] MEDS ORDERED: potassium Cl 2 mEq/ml inj IV ONE (08:00)
[2019-09-22] MEDS: losartan 25mg tablet PO SCH (08:00)
[2019-09-22] MEDS: pantoprazole 40mg Tablet.DR PO SCH (08:00)
[2019-09-22] MEDS: atorvastatin 10mg tablet PO SCH (08:00)
[2019-09-22] MEDS: digoxin 125mcg (0.125mg) tablet PO SCH (08:00)
[2019-09-22] MEDS: furosemide 20 MG/2 ML vial IV SCH (08:00)
[2019-09-22 08:11] LABS: ABG BASE EXCESS 1.8 mmol/L (-2.0-3.0); ABG HCO3 26.6 mmol/L (22.0-26.0); ABG OXYGEN SATURATION 99.7 % (95-98); ABG PCO2 42.7 mmHg (35.0-45.0); ABG PH 7.412 (7.350-7.450); ABG PO2 468.6 mmHg (60.0-100.0); CL (ABG) 98 mmol/L (99-107); FCOHb 0.6 % (0.5-1.5); FMetHb 0.3 % (0.3-1.12); FO2Hb 98.8 % (94-100); GLUCOSE (ABG) 100 mg/dl (70-104); IONIZED CA (ABG) 1.01 mmol/L (1.03-1.32); K (ABG) 4.2 mmol/L (3.3-5.1); NA (ABG) 134 mmol/L (135-145); TOTAL HEMOGLOBIN 10.3 G/dl (12.0-16.0)
[2019-09-22 08:11] LABS: ABG HCO3 VENOUS 27.2 mmol/L; ABG PCO2 VENOUS 45.5 mmHg; ABG PO2 VENOUS 66.9 mmHg; CL (ABG) 98 mmol/L (99-107); FCOHb VENOUS 0.7 %; FHHb VENOUS 7.7 %; FMetHb VENOUS 0.3 %; FO2Hb VENOUS 91.3 %; GLUCOSE (ABG) 99 mg/dl (70-104); IONIZED CA (ABG) 1.01 mmol/L (1.03-1.32); K (ABG) 4.8 mmol/L (3.3-5.1); NA (ABG) 134 mmol/L (135-145); TOTAL HEMOGLOBIN 10.3 G/dl (12.0-16.0)
[2019-09-22 08:36] LABS: ABG BASE EXCESS 0.9 mmol/L (-2.0-3.0); ABG HCO3 29.2 mmol/L (22.0-26.0); ABG OXYGEN SATURATION 99.3 % (95-98); ABG PH 7.263 (7.350-7.450); ABG PO2 354.8 mmHg (60.0-100.0); CL (ABG) 99 mmol/L (99-107); FCOHb 0.1 % (0.5-1.5); FMetHb 0.6 % (0.3-1.12); FO2Hb 98.6 % (94-100); GLUCOSE (ABG) 102 mg/dl (70-104); IONIZED CA (ABG) 1.07 mmol/L (1.03-1.32); K (ABG) 4.3 mmol/L (3.3-5.1); NA (ABG) 136 mmol/L (135-145); TOTAL HEMOGLOBIN 11.1 G/dl (12.0-16.0)
[2019-09-22 09:06] LABS: ABG BASE EXCESS 2.4 mmol/L (-2.0-3.0); ABG HCO3 29.7 mmol/L (22.0-26.0); ABG OXYGEN SATURATION 99.2 % (95-98); ABG PCO2 60.3 mmHg (35.0-45.0); ABG PO2 363.6 mmHg (60.0-100.0); CL (ABG) 97 mmol/L (99-107); FCOHb 0.3 % (0.5-1.5); FMetHb 0.6 % (0.3-1.12); FO2Hb 98.3 % (94-100); GLUCOSE (ABG) 98 mg/dl (70-104); IONIZED CA (ABG) 1.04 mmol/L (1.03-1.32); K (ABG) 4.3 mmol/L (3.3-5.1); NA (ABG) 134 mmol/L (135-145); TOTAL HEMOGLOBIN 10.3 G/dl (12.0-16.0)
[2019-09-22 10:05] LABS: ABG PCO2 VENOUS 49.9 mmHg; ABG PO2 VENOUS 36.2 mmHg; CL (ABG) 100 mmol/L (99-107); FCOHb VENOUS 0.6 %; FHHb VENOUS 33.3 %; FMetHb VENOUS 0.6 %; FO2Hb VENOUS 65.5 %; GLUCOSE (ABG) 137 mg/dl (70-104); IONIZED CA (ABG) 1.21 mmol/L (1.03-1.32); K (ABG) 4.6 mmol/L (3.3-5.1); NA (ABG) 136 mmol/L (135-145); TOTAL HEMOGLOBIN 11.7 G/dl (12.0-16.0)
[2019-09-22] MEDS ORDERED: propofol inj 20 ML IV ONE (10:17)
[2019-09-22] MEDS ORDERED: rocuronium 10mg/ml inj IV ONE ×3 (10:17)
[2019-09-22] MEDS ORDERED: niCARDipine-NS 40mg/200ml IVPB 200 ML IV PRN (10:32)
[2019-09-22] MEDS ORDERED: sodium chloride 0.45% 1,000 ML IV SCH (10:32)
[2019-09-22] MEDS ORDERED: Insulin Reg/NS 100units/100mL 100 ML IV SCH (10:32)
[2019-09-22] MEDS ORDERED: milrinone (Primacor) 20mg/D5W 100 ML IV PRN ×2 (10:32→10:55)
[2019-09-22] MEDS ORDERED: DOPamine 400mg/D5W 250ml 250 ML IV PRN (10:32)
[2019-09-22] MEDS ORDERED: nitroGLYCERIN-Tridil 50MG/D5W 250 ML IV PRN (10:32)
[2019-09-22] MEDS ORDERED: Neutra Phos packet PO PRN (10:35)
[2019-09-22] MEDS ORDERED: mineral oil 133ml enema RC PRN (10:35)
[2019-09-22] MEDS ORDERED: HYDROmorphone 1 mg/ml syringe IV PRN (10:35)
[2019-09-22] MEDS ORDERED: normal saline 250ml IV soln 250 ML IV PRN (10:35)
[2019-09-22] MEDS ORDERED: HYDROmorphone inj. 0.5 MG/0.5 ML DISP.SYRIN IV PRN (10:35)
[2019-09-22] MEDS ORDERED: acetaminophen 325mg tablet PO PRN ×2 (10:35)
[2019-09-22] MEDS ORDERED: bisacodyl 10mg suppository rectal RC PRN (10:35)
[2019-09-22] MEDS ORDERED: ondansetron/PF 4mg/2ml inj IV PRN (10:35)
[2019-09-22] MEDS ORDERED: magnesium 2GM in 50ml NS 50 ML IV PRN (10:35)
[2019-09-22] MEDS ORDERED: magnesium citrate 296ml oral solution PO PRN (10:35)
[2019-09-22] MEDS ORDERED: metoclopramide 5 mg/ml inj IV PRN (10:35)
[2019-09-22] MEDS ORDERED: magnesium hydroxide 30ml (MOM) UD suspension PO PRN (10:35)
[2019-09-22] MEDS ORDERED: dextrose 50%-water 50ml dispensing syringe IV PRN (10:35)
[2019-09-22] MEDS ORDERED: sodium phosphate inj. 30 MMOL in dextrose 5%-water 250 ML IV PRN (10:35)
[2019-09-22] MEDS ORDERED: magnesium 4gm in 100ml NS 100 ML IV PRN (10:35)
[2019-09-22] MEDS ORDERED: pantoprazole 40 MG vial IV ONE (10:35)
[2019-09-22] MEDS ORDERED: sodium phosphate inj. 15 MMOL in dextrose 5%-water 250 ML IV PRN (10:35)
[2019-09-22] MEDS ORDERED: potassium Cl 20 mEq SR tablet PO PRN (10:35)
[2019-09-22] MEDS: Insulin Reg/NS 100units/100mL 100 ML IV SCH (10:45)
--- NOTE | 2019-09-22 10:45 | NUR ---
Received to room 2011B, accompanied by MDs and surgical crew. Placed on ventilator, to cafeteria monitor, arterial line and PA line pressure monitored. Chest tubes to suction at 20 cm. Celeste cath to gravity drainage. Dressings are dry and intact. See assessment record. All vasoactive drugs are infusing via central line.
[2019-09-22 11:06] LABS: ABG BASE EXCESS -1.6 mmol/L (-2.0-3.0); ABG HCO3 23.4 mmol/L (22.0-26.0); ABG OXYGEN SATURATION 95.5 % (95-98); ABG PCO2 (T) 40.2 mmHg (35.0-45.0); ABG PH (T) 7.382 (7.350-7.450); ABG PO2 (T) 86.5 mmHg (83-108); FMetHb 0.3 % (0.3-1.12); FO2Hb 95.2 % (94-100); PEEP 5 cm H2O; RESPIRATORY RATE 12 b/min; TIDAL VOLUME 500 mL; TOTAL HEMOGLOBIN 13.3 G/dl (12.0-16.0)
[2019-09-22 11:21] LABS: BASOPHILS # (AUTO) 0.1 X10'3 (0-0.2); BASOPHILS % (AUTO) 0.3 % (0-1); EOSINOPHILS # (AUTO) 0.1 X10'3 (0-0.9); EOSINOPHILS % (AUTO) 0.6 % (0-6); HEMATOCRIT 38.5 % (35.0-45.0); HEMOGLOBIN 12.7 g/dl (12.0-16.0); LYMPHOCYTES % (AUTO) 4.5 % (21-51); MEAN CORPUSCULAR HEMOGLOBIN 28.3 PG (27.0-31.0); MEAN CORPUSCULAR HGB CONC 33.1 g/dL (33.0-36.5); MEAN CORPUSCULAR VOLUME 85.4 FL (78-98); MEAN PLATELET VOLUME 8.4 FL (7.4-10.4); MONOCYTES # (AUTO) 0.6 X10'3 (0-0.9); MONOCYTES % (AUTO) 2.8 % (2-12); NEUTROPHILS # (AUTO) 19.9 X10'3 (1.8-7.7); NEUTROPHILS % (AUTO) 91.8 % (42-75); PLATELET COUNT 145 X10'3 (140-440); RED BLOOD COUNT 4.51 X10'6 (4.20-5.60); RED CELL DISTRIBUTION WIDTH 16.4 % (11.5-14.5); WHITE BLOOD COUNT 21.7 X10'3 (4.5-11.0)
[2019-09-22 11:28] LABS: ALANINE AMINOTRANSFERASE 18 U/L (12-78); ALBUMIN 2.8 G/DL (3.4-5.0); ALBUMIN/GLOBULIN RATIO 1.2 (1.1-1.5); ALKALINE PHOSPHATASE 40 IU/L (46-116); ANION GAP 6 (8-16); ASPARTATE AMINO TRANSFERASE 53 U/L (10-37); BLOOD UREA NITROGEN 38 MG/DL (7-18); BUN/CREATININE RATIO 29.2 (6.6-38.0); CALCIUM 8.8 MG/DL (8.5-10.1); CHLORIDE 105 MMOL/L (99-107); GLUCOSE 172 MG/DL (70-104); MAGNESIUM 2.9 MG/DL (1.5-2.4); PHOSPHORUS 2.8 MG/DL (2.3-4.5); POTASSIUM 4.6 MMOL/L (3.5-5.1); SODIUM 139 MMOL/L (135-145); TOTAL CARBON DIOXIDE 27.9 MMOL/L (24-32); TOTAL PROTEIN 5.2 G/DL (6.4-8.2); eGFR 43 ML/MIN
[2019-09-22 11:41] LABS: PARTIAL THROMBOPLASTIN TIME 26 SECONDS (22-32)
[2019-09-22] MEDS: albumin (Human) 5% 250ml 250 ML IV PRN ×3 (11:57→18:27)
[2019-09-22] MEDS: gabapentin 300mg capsule PO SCH ×2 (12:24→21:44)
--- NOTE | 2019-09-22 13:36 | NUR ---
CABG Consult: Pt s/p mitral valve repair and tricuspid valve replacement. Pt will need high protein/heart healthy diet eds post-op once clinically stable. Will continue to monitor. Addendum: 09/22/19 at [address] Amended: Links added.
[2019-09-22] MEDS ORDERED: epiNEPHrine inj 5 MG, calcium chloride inj. 1,000 MG in normal saline 250ml IV soln 250 ML IV PRN (16:10)
[2019-09-22 16:49] LABS: BASOPHILS % (AUTO) 0.2 % (0-1); EOSINOPHILS % (AUTO) 0.1 % (0-6); HEMATOCRIT 39.3 % (35.0-45.0); HEMOGLOBIN 12.9 g/dl (12.0-16.0); LYMPHOCYTES # (AUTO) 0.5 X10'3 (1.1-4.8); LYMPHOCYTES % (AUTO) 2.7 % (21-51); MEAN CORPUSCULAR HEMOGLOBIN 28.2 PG (27.0-31.0); MEAN CORPUSCULAR HGB CONC 32.8 g/dL (33.0-36.5); MEAN CORPUSCULAR VOLUME 85.9 FL (78-98); MEAN PLATELET VOLUME 8.5 FL (7.4-10.4); MONOCYTES # (AUTO) 0.3 X10'3 (0-0.9); MONOCYTES % (AUTO) 1.7 % (2-12); NEUTROPHILS # (AUTO) 18.5 X10'3 (1.8-7.7); NEUTROPHILS % (AUTO) 95.3 % (42-75); PLATELET COUNT 162 X10'3 (140-440); RED BLOOD COUNT 4.58 X10'6 (4.20-5.60); RED CELL DISTRIBUTION WIDTH 16.2 % (11.5-14.5); WHITE BLOOD COUNT 19.4 X10'3 (4.5-11.0)
[2019-09-22 17:00] LABS: ALBUMIN 3.8 G/DL (3.4-5.0); ANION GAP 12 (8-16); BLOOD UREA NITROGEN 42 MG/DL (7-18); BUN/CREATININE RATIO 21.9 (6.6-38.0); CALCIUM 9.7 MG/DL (8.5-10.1); CHLORIDE 105 MMOL/L (99-107); CREATININE 1.92 MG/DL (0.40-0.90); GLUCOSE 215 MG/DL (70-104); MAGNESIUM 2.9 MG/DL (1.5-2.4); PHOSPHORUS 2.8 MG/DL (2.3-4.5); POTASSIUM 4.3 MMOL/L (3.5-5.1); SODIUM 141 MMOL/L (135-145); eGFR 27 ML/MIN
[2019-09-22] MEDS: ceFAZolin 1GM/D5W- ADD-VANTAGE 50 ML IV SCH (17:24)
[2019-09-22] MEDS: potassium Cl 20mEq/100mL bag 100 ML IV PRN ×2 (17:54→19:23)
--- NOTE | 2019-09-22 18:29 | NUR ---
Problems reprioritized. Patient report given, questions answered & plan of care reviewed with oncoming shift.
[2019-09-22 20:11] LABS: ABG BASE EXCESS -6.2 mmol/L (-2.0-3.0); ABG HCO3 19.8 mmol/L (22.0-26.0); ABG OXYGEN SATURATION 96.1 % (95-98); ABG PH (T) 7.301 (7.350-7.450); FCOHb 0.3 % (0.5-1.5); FMetHb 0.4 % (0.3-1.12); FO2Hb 95.4 % (94-100); PEEP 5 cm H2O; TOTAL HEMOGLOBIN 12.9 G/dl (12.0-16.0)
[2019-09-22] MEDS: vancomycin/NS 1 GM ADD-VANTAGE 250 ML IV SCH (20:49)
[2019-09-22] MEDS: sennosides/docusate sodium tablet PO SCH (20:49)
[2019-09-23] VITALS (24 sets, daily range): BP systolic 108–150; BP diastolic 55–90
[2019-09-23] MEDS: ceFAZolin 1GM/D5W- ADD-VANTAGE 50 ML IV SCH ×2 (00:03→14:45)
[2019-09-23 00:10] LABS: ABG BASE EXCESS -7.5 mmol/L (-2.0-3.0); ABG HCO3 18.3 mmol/L (22.0-26.0); ABG OXYGEN SATURATION 95.2 % (95-98); ABG PCO2 (T) 37.9 mmHg (35.0-45.0); ABG PH (T) 7.302 (7.350-7.450); ABG PO2 (T) 84.2 mmHg (83-108); FCOHb 0.3 % (0.5-1.5); FMetHb 0.3 % (0.3-1.12); FO2Hb 94.6 % (94-100); PATIENT TEMPERATURE 36.8; PEEP 5 cm H2O; TOTAL HEMOGLOBIN 12.7 G/dl (12.0-16.0)
[2019-09-23] MEDS: Insulin Reg/NS 100units/100mL 100 ML IV SCH (01:43)
[2019-09-23 02:56] LABS: BASOPHILS % (AUTO) 0.1 % (0-1); EOSINOPHILS % (AUTO) 0 % (0-6); HEMATOCRIT 34.5 % (35.0-45.0); HEMOGLOBIN 11.5 g/dl (12.0-16.0); LYMPHOCYTES # (AUTO) 0.7 X10'3 (1.1-4.8); LYMPHOCYTES % (AUTO) 3.8 % (21-51); MEAN CORPUSCULAR HEMOGLOBIN 28.6 PG (27.0-31.0); MEAN CORPUSCULAR HGB CONC 33.2 g/dL (33.0-36.5); MEAN PLATELET VOLUME 8.9 FL (7.4-10.4); MONOCYTES # (AUTO) 0.6 X10'3 (0-0.9); MONOCYTES % (AUTO) 3.4 % (2-12); NEUTROPHILS # (AUTO) 17.1 X10'3 (1.8-7.7); NEUTROPHILS % (AUTO) 92.7 % (42-75); PARTIAL THROMBOPLASTIN TIME 24 SECONDS (22-32); PLATELET COUNT 113 X10'3 (140-440); RED BLOOD COUNT 4.01 X10'6 (4.20-5.60); RED CELL DISTRIBUTION WIDTH 16.1 % (11.5-14.5); WHITE BLOOD COUNT 18.5 X10'3 (4.5-11.0)
[2019-09-23 03:10] LABS: ALANINE AMINOTRANSFERASE 21 U/L (12-78); ALBUMIN 3.7 G/DL (3.4-5.0); ALBUMIN/GLOBULIN RATIO 1.4 (1.1-1.5); ALKALINE PHOSPHATASE 36 IU/L (46-116); ANION GAP 10 (8-16); ASPARTATE AMINO TRANSFERASE 74 U/L (10-37); BILIRUBIN,TOTAL 0.8 MG/DL (0.1-1.0); BLOOD UREA NITROGEN 43 MG/DL (7-18); BUN/CREATININE RATIO 22.9 (6.6-38.0); CALCIUM 9.7 MG/DL (8.5-10.1); CHLORIDE 108 MMOL/L (99-107); CREATININE 1.88 MG/DL (0.40-0.90); GLUCOSE 111 MG/DL (70-104); MAGNESIUM 2.7 MG/DL (1.5-2.4); PHOSPHORUS 4.2 MG/DL (2.3-4.5); POTASSIUM 5.1 MMOL/L (3.5-5.1); SODIUM 141 MMOL/L (135-145); TOTAL CARBON DIOXIDE 22.9 MMOL/L (24-32); TOTAL PROTEIN 6.4 G/DL (6.4-8.2); eGFR 28 ML/MIN
[2019-09-23] MEDS ORDERED: metoprolol tartrate 12.5mg (1/2 tablet) PO SCH (08:00)
[2019-09-23] MEDS: mupirocin 2% nasal ointment 1gm UD NS SCH ×2 (08:00→20:05)
[2019-09-23] MEDS: vancomycin/NS 1 GM ADD-VANTAGE 250 ML IV SCH ×2 (09:05→20:05)
[2019-09-23] MEDS: digoxin 125mcg (0.125mg) tablet PO SCH (09:06)
[2019-09-23] MEDS: carvedilol 6.25mg tablet PO SCH ×2 (09:06→20:05)
[2019-09-23] MEDS: sennosides/docusate sodium tablet PO SCH ×2 (09:06→20:05)
[2019-09-23] MEDS: atorvastatin 10mg tablet PO SCH (09:06)
[2019-09-23] MEDS: aspirin 325mg tablet, delayed-release (Ecotrin) PO SCH (09:06)
[2019-09-23] MEDS: gabapentin 300mg capsule PO SCH ×3 (09:06→20:05)
[2019-09-23] MEDS: HYDROcodone/acetaminophen 10/325mg tab PO PRN ×2 (09:07→20:05)
[2019-09-23] MEDS ORDERED: dextrose 50%-water 50ml dispensing syringe IV PRN ×2 (12:50)
[2019-09-23] MEDS ORDERED: dextrose ORAL solution 15 GM/59 ML bottle PO PRN ×2 (12:50)
[2019-09-23] MEDS ORDERED: glucagon, human recombinant 1mg kit SUBCUT PRN (12:50)
[2019-09-23] MEDS ORDERED: MESSAGE TO PHARMACY PO ONE (12:50)
[2019-09-23] MEDS: insulin Lispro (HumaLOG) vial - multi-dose SQ SCH ×2 (14:42→18:59)
--- NOTE | 2019-09-23 15:32 | NUR ---
CABG Consult: Pt s/p mitral valve repair and tricuspid valve replacement. Pt will need high protein/heart healthy diet eds post-op once clinically stable. Great appetite, eating well, 100% PO no concentrated sweets. Presented to ED with chest pain secondary to exacerbation of chronic heart failure, Afib, hyperlipidemia, mitral valve regurgitation, tricuspid valve regurgitation, and stage 3 renal failure all per MD progress note. Will continue to monitor. Recommend: 1. continue no concentrated sweets diet 2. bowel care as needed 3. weight per rx Addendum: 09/23/19 at [address] Amended: Links added.
--- NOTE | 2019-09-23 18:44 | NUR ---
gave report to judy noyola
[2019-09-23] MEDS: losartan 25mg tablet PO SCH (20:05)
[2019-09-23] MEDS: insulin glargine (Lantus) pen - multi-dose SQ SCH (21:05)
[2019-09-24] VITALS (17 sets, daily range): BP systolic 117–147; BP diastolic 60–85
[2019-09-24] MEDS: ceFAZolin 1GM/D5W- ADD-VANTAGE 50 ML IV SCH ×2 (00:09→07:22)
[2019-09-24 02:50] LABS: BASOPHILS % (AUTO) 0.1 % (0-1); EOSINOPHILS % (AUTO) 0 % (0-6); HEMATOCRIT 32.5 % (35.0-45.0); HEMOGLOBIN 10.7 g/dl (12.0-16.0); LYMPHOCYTES # (AUTO) 0.5 X10'3 (1.1-4.8); MEAN CORPUSCULAR HEMOGLOBIN 28.6 PG (27.0-31.0); MEAN CORPUSCULAR HGB CONC 33.1 g/dL (33.0-36.5); MEAN CORPUSCULAR VOLUME 86.5 FL (78-98); MEAN PLATELET VOLUME 9.4 FL (7.4-10.4); MONOCYTES # (AUTO) 0.9 X10'3 (0-0.9); MONOCYTES % (AUTO) 3.7 % (2-12); NEUTROPHILS # (AUTO) 21.9 X10'3 (1.8-7.7); NEUTROPHILS % (AUTO) 94.2 % (42-75); PLATELET COUNT 92 X10'3 (140-440); RED BLOOD COUNT 3.76 X10'6 (4.20-5.60); RED CELL DISTRIBUTION WIDTH 16.3 % (11.5-14.5); WHITE BLOOD COUNT 23.3 X10'3 (4.5-11.0)
[2019-09-24 03:06] LABS: ALBUMIN 3.5 G/DL (3.4-5.0); ANION GAP 9 (8-16); BLOOD UREA NITROGEN 46 MG/DL (7-18); BUN/CREATININE RATIO 26.1 (6.6-38.0); CALCIUM 8.5 MG/DL (8.5-10.1); CHLORIDE 102 MMOL/L (99-107); CREATININE 1.76 MG/DL (0.40-0.90); GLUCOSE 162 MG/DL (70-104); MAGNESIUM 2.5 MG/DL (1.5-2.4); PHOSPHORUS 4.6 MG/DL (2.3-4.5); SODIUM 136 MMOL/L (135-145); TOTAL CARBON DIOXIDE 24.7 MMOL/L (24-32); eGFR 30 ML/MIN
[2019-09-24 03:43] LABS: ANISOCYTOSIS 1+; PLATELET ESTIMATE DECREASED; TOTAL CELLS COUNTED 100
--- NOTE | 2019-09-24 06:14 | NUR ---
Patient in room CICU 2010. I have received report from Víctor and had the opportunity to ask questions and assume patient care.
[2019-09-24] MEDS: aspirin 325mg tablet, delayed-release (Ecotrin) PO SCH (07:20)
[2019-09-24] MEDS: pantoprazole 40mg Tablet.DR PO SCH (07:20)
[2019-09-24] MEDS: atorvastatin 10mg tablet PO SCH (07:20)
[2019-09-24] MEDS: gabapentin 300mg capsule PO SCH (07:20)
[2019-09-24] MEDS: mupirocin 2% nasal ointment 1gm UD NS SCH (07:21)
[2019-09-24] MEDS: digoxin 125mcg (0.125mg) tablet PO SCH (07:21)
[2019-09-24] MEDS: sennosides/docusate sodium tablet PO SCH ×2 (07:21→19:21)
[2019-09-24] MEDS: carvedilol 6.25mg tablet PO SCH ×2 (07:21→19:21)
[2019-09-24] MEDS: HYDROcodone/acetaminophen 10/325mg tab PO PRN ×2 (07:56→19:22)
[2019-09-24] MEDS: insulin Lispro (HumaLOG) vial - multi-dose SQ SCH ×3 (08:47→19:14)
[2019-09-24] MEDS ORDERED: furosemide 40mg/4ml inj IV ONE (09:15)
[2019-09-24] MEDS ORDERED: potassium Cl 20 mEq SR tablet PO PRN (09:20)
[2019-09-24] MEDS ORDERED: potassium Cl 20mEq/100mL bag 100 ML IV PRN (09:20)
[2019-09-24] MEDS ORDERED: magnesium 4gm in 100ml NS 100 ML IV PRN (09:20)
[2019-09-24] MEDS ORDERED: magnesium 2GM in 50ml NS 50 ML IV PRN (09:20)
[2019-09-24] MEDS: aspirin 81mg tablet.DR PO SCH (09:30)
--- NOTE | 2019-09-24 09:45 | NUR ---
[place]a and BERNARD templeton.
--- NOTE | 2019-09-24 10:13 | NUR ---
Patient has returned from session with PT at this time. Patient is lying on right side. Patient alert and oriented x 4, patient denies shortness of breath, chills and nausea. Patient does not appear to be in distress.
--- NOTE | 2019-09-24 10:40 | NUR ---
Patient appears to be resting with her eyes closed. Patient does not appear to be in distress, RR is 12.
--- NOTE | 2019-09-24 11:05 | NUR ---
Spoke to pharmacist who stated to NOT give todays dose of 81mg ASA, since the 325mg was already given today.
--- NOTE | 2019-09-24 13:18 | NUR ---
Patient given prescribed diet at this time. Patient does not appear to be in distress. Educated patient regarding physical limitations for CABG.
--- NOTE | 2019-09-24 15:39 | NUR ---
Report called to Betty on ACCE unit. Pt transferred to room 316 with all personal belongings.
--- NOTE | 2019-09-24 15:40 | NUR ---
Patient in room MED 316. I have received report from Svetlana BENZ CICU and had the opportunity to ask questions and assume patient care.
--- NOTE | 2019-09-24 16:00 | NUR ---
Pt in room 316. Oriented to room, call light, TV , and POC. She stated understanding and agreed. Assessment completed and this nurse agrees with prior nursing assessment completed today and no changes found. Chest tube sites dressing CDI. Sternal incision well approx and no s/s of complications. Pt denies any needs at this time.
--- NOTE | 2019-09-24 18:04 | NUR ---
Patient in room MED 316. I have received report from LC BENZ and had the opportunity to ask questions and assume patient care.
--- NOTE | 2019-09-24 18:35 | NUR ---
Problems reprioritized. Patient report given, questions answered & plan of care reviewed with Sharmaine RN.
[2019-09-24] MEDS: magnesium Cl slow-release 64mg tablet PO SCH (19:22)
[2019-09-24] MEDS: potassium Cl 20 mEq SR tablet PO SCH (19:23)
--- NOTE | 2019-09-24 20:30 | NUR ---
PATIENT REFUSING SCD'S, EDUCATION GIVEN REGARDING IMPORTANCE OF BLOOD RETURN BACK TO HEARTS/P OPEN HEART SURGERY. WILL REVISIT IN ONE HOUR, RE-EDUCATE FOR BETTER OUTCOME. CARLOS BENZ
--- NOTE | 2019-09-24 22:00 | NUR ---
RE-EDUCATED PATIENT REGARDING IMPORTANCE OF HAVING SCD'S ON FOR VENOUS RETURN WHILE IN BED. PATIENT AGREED TO WEAR.
[2019-09-24] MEDS: losartan 25mg tablet PO SCH (22:29)
[2019-09-24] MEDS: insulin glargine (Lantus) pen - multi-dose SQ SCH (22:37)
[2019-09-25 02:00] VITALS: BP 123/81
[2019-09-25] MEDS: HYDROcodone/acetaminophen 10/325mg tab PO PRN ×2 (03:10→03:56)
[2019-09-25 06:00] VITALS: BP 104/61
--- NOTE | 2019-09-25 06:04 | NUR ---
Problems reprioritized. Patient report given, questions answered & plan of care reviewed with TWAN BENZ.
[2019-09-25 06:53] LABS: BASOPHILS % (AUTO) 0.1 % (0-1); EOSINOPHILS % (AUTO) 0 % (0-6); HEMATOCRIT 32.2 % (35.0-45.0); HEMOGLOBIN 10.4 g/dl (12.0-16.0); LYMPHOCYTES # (AUTO) 1.2 X10'3 (1.1-4.8); LYMPHOCYTES % (AUTO) 6.4 % (21-51); MEAN CORPUSCULAR HEMOGLOBIN 28.1 PG (27.0-31.0); MEAN CORPUSCULAR HGB CONC 32.4 g/dL (33.0-36.5); MEAN CORPUSCULAR VOLUME 86.8 FL (78-98); MEAN PLATELET VOLUME 9.2 FL (7.4-10.4); MONOCYTES # (AUTO) 1.4 X10'3 (0-0.9); MONOCYTES % (AUTO) 7.6 % (2-12); NEUTROPHILS # (AUTO) 16.2 X10'3 (1.8-7.7); NEUTROPHILS % (AUTO) 85.9 % (42-75); PLATELET COUNT 91 X10'3 (140-440); RED BLOOD COUNT 3.71 X10'6 (4.20-5.60); RED CELL DISTRIBUTION WIDTH 16.2 % (11.5-14.5); WHITE BLOOD COUNT 18.9 X10'3 (4.5-11.0)
[2019-09-25 07:10] LABS: ALBUMIN 3.2 G/DL (3.4-5.0); ANION GAP 7 (8-16); BLOOD UREA NITROGEN 48 MG/DL (7-18); BUN/CREATININE RATIO 43.6 (6.6-38.0); CALCIUM 8.1 MG/DL (8.5-10.1); CHLORIDE 104 MMOL/L (99-107); GLUCOSE 101 MG/DL (70-104); POTASSIUM 4.5 MMOL/L (3.5-5.1); SODIUM 137 MMOL/L (135-145); eGFR 52 ML/MIN
[2019-09-25] MEDS: pantoprazole 40mg Tablet.DR PO SCH (07:24)
[2019-09-25] MEDS: atorvastatin 10mg tablet PO SCH (07:24)
[2019-09-25] MEDS: aspirin 81mg tablet.DR PO SCH (07:24)
[2019-09-25] MEDS: potassium Cl 20 mEq SR tablet PO SCH ×2 (07:24→19:24)
[2019-09-25] MEDS: sennosides/docusate sodium tablet PO SCH ×2 (07:24→19:23)
[2019-09-25] MEDS: carvedilol 6.25mg tablet PO SCH ×2 (07:24→19:27)
[2019-09-25] MEDS: magnesium Cl slow-release 64mg tablet PO SCH ×2 (07:25→19:24)
[2019-09-25] MEDS: digoxin 125mcg (0.125mg) tablet PO SCH (07:25)
[2019-09-25] MEDS ORDERED: furosemide 40mg/4ml inj IV ONE (09:30)
[2019-09-25 10:00] VITALS: BP 99/65
[2019-09-25 13:04] LABS: MAGNESIUM 2.4 MG/DL (1.5-2.4)
[2019-09-25] MEDS: insulin Lispro (HumaLOG) vial - multi-dose SQ SCH ×2 (13:25→19:23)
[2019-09-25 14:00] VITALS: BP 116/71
--- NOTE | 2019-09-25 17:12 | NUR ---
F/u: Pt seen by LIZBETH for written/verbal high protein/heart healthy diet eds w/ RD contact information provided. Pt resting and reports feeling too lethargic for ed at this time. Written eds w/ RD contact information left at bedside. Would benefit from diet ed reinforcement once more appropriate prior to d/c. Addendum: 09/25/19 at [address] Amended: Links added.
[2019-09-25 18:00] VITALS: BP 99/41
--- NOTE | 2019-09-25 18:22 | NUR ---
Problems reprioritized. Patient report given, questions answered & plan of care reviewed with Huong BENZ.
[2019-09-25] MEDS: insulin glargine (Lantus) pen - multi-dose SQ SCH (21:00)
[2019-09-25 22:00] VITALS: BP 111/67
[2019-09-25] MEDS: losartan 25mg tablet PO SCH (23:28)
[2019-09-26] MEDS: HYDROcodone/acetaminophen 10/325mg tab PO PRN (01:57)
[2019-09-26 02:00] VITALS: BP 127/68
[2019-09-26 06:06] LABS: BASOPHILS % (AUTO) 0.2 % (0-1); EOSINOPHILS # (AUTO) 0.1 X10'3 (0-0.9); EOSINOPHILS % (AUTO) 0.7 % (0-6); HEMATOCRIT 33.1 % (35.0-45.0); HEMOGLOBIN 10.9 g/dl (12.0-16.0); LYMPHOCYTES # (AUTO) 1.7 X10'3 (1.1-4.8); LYMPHOCYTES % (AUTO) 12.7 % (21-51); MEAN CORPUSCULAR HEMOGLOBIN 28.4 PG (27.0-31.0); MEAN CORPUSCULAR HGB CONC 32.7 g/dL (33.0-36.5); MEAN CORPUSCULAR VOLUME 86.8 FL (78-98); MEAN PLATELET VOLUME 9.3 FL (7.4-10.4); MONOCYTES # (AUTO) 1.1 X10'3 (0-0.9); MONOCYTES % (AUTO) 8.2 % (2-12); NEUTROPHILS # (AUTO) 10.4 X10'3 (1.8-7.7); NEUTROPHILS % (AUTO) 78.2 % (42-75); PLATELET COUNT 112 X10'3 (140-440); RED BLOOD COUNT 3.82 X10'6 (4.20-5.60); RED CELL DISTRIBUTION WIDTH 16.7 % (11.5-14.5); WHITE BLOOD COUNT 13.3 X10'3 (4.5-11.0)
[2019-09-26 06:07] LABS: ANION GAP 5 (8-16); BLOOD UREA NITROGEN 40 MG/DL (7-18); BUN/CREATININE RATIO 40.8 (6.6-38.0); CALCIUM 8.3 MG/DL (8.5-10.1); CHLORIDE 107 MMOL/L (99-107); CREATININE 0.98 MG/DL (0.40-0.90); GLUCOSE 97 MG/DL (70-104); MAGNESIUM 2.3 MG/DL (1.5-2.4); POTASSIUM 4.3 MMOL/L (3.5-5.1); SODIUM 139 MMOL/L (135-145); TOTAL CARBON DIOXIDE 26.6 MMOL/L (24-32); eGFR 59 ML/MIN
--- NOTE | 2019-09-26 06:34 | NUR ---
Problems reprioritized. Patient report given, questions answered & plan of care reviewed with clifton noyola.
--- NOTE | 2019-09-26 06:39 | NUR ---
Patient in room MED 316. I have received report from Huong BENZ and had the opportunity to ask questions and assume patient care.
[2019-09-26 07:29] VITALS: BP 146/86
[2019-09-26] MEDS: magnesium Cl slow-release 64mg tablet PO SCH ×2 (08:00→22:31)
[2019-09-26] MEDS: potassium Cl 20 mEq SR tablet PO SCH ×2 (08:00→22:31)
[2019-09-26] MEDS: aspirin 81mg tablet.DR PO SCH (08:35)
[2019-09-26] MEDS: digoxin 125mcg (0.125mg) tablet PO SCH (08:35)
[2019-09-26] MEDS: sennosides/docusate sodium tablet PO SCH ×2 (08:36→22:32)
[2019-09-26] MEDS: pantoprazole 40mg Tablet.DR PO SCH (08:36)
[2019-09-26] MEDS: atorvastatin 10mg tablet PO SCH (08:36)
[2019-09-26] MEDS: furosemide 40mg tablet PO SCH (08:36)
[2019-09-26] MEDS: carvedilol 6.25mg tablet PO SCH ×2 (08:36→22:32)
[2019-09-26] MEDS: insulin Lispro (HumaLOG) vial - multi-dose SQ SCH ×3 (08:43→19:13)
[2019-09-26 11:00] VITALS: BP 126/67
--- NOTE | 2019-09-26 14:15 | NUR ---
Asked patient if she was ready to walk, stated " I don't want to walk." Made patient aware that I will need to put in my charting that she is refusing to walk even thought understanding the importance of walking, she stated, "okay."
[2019-09-26 15:00] VITALS: BP 140/70
--- NOTE | 2019-09-26 18:30 | NUR ---
Patient in room MED 316. I have received report from Madina BENZ and had the opportunity to ask questions and assume patient care.
--- NOTE | 2019-09-26 18:30 | NUR ---
Problems reprioritized. Patient report given, questions answered & plan of care reviewed with CHARY BENZ.
[2019-09-26] MEDS: insulin glargine (Lantus) pen - multi-dose SQ SCH (21:00)
[2019-09-26] MEDS: losartan 25mg tablet PO SCH (21:00)
--- NOTE | 2019-09-26 21:59 | NUR ---
notified rn tele. pt on tele 25.
[2019-09-26 22:00] VITALS: BP 151/111
[2019-09-27] MEDS: HYDROcodone/acetaminophen 10/325mg tab PO PRN (00:15)
--- NOTE | 2019-09-27 01:10 | NUR ---
Pt is noncompliant, takes off O2 probes, ECG leads, and BP cuff regularly
[2019-09-27 01:24] LABS: BASOPHILS # (AUTO) 0.1 X10'3 (0-0.2); BASOPHILS % (AUTO) 0.4 % (0-1); EOSINOPHILS # (AUTO) 0.2 X10'3 (0-0.9); EOSINOPHILS % (AUTO) 1.6 % (0-6); HEMATOCRIT 37.6 % (35.0-45.0); HEMOGLOBIN 12.4 g/dl (12.0-16.0); LYMPHOCYTES # (AUTO) 1.8 X10'3 (1.1-4.8); LYMPHOCYTES % (AUTO) 12.1 % (21-51); MEAN CORPUSCULAR HEMOGLOBIN 28.6 PG (27.0-31.0); MEAN CORPUSCULAR HGB CONC 32.9 g/dL (33.0-36.5); MEAN CORPUSCULAR VOLUME 87.1 FL (78-98); MONOCYTES % (AUTO) 6.7 % (2-12); NEUTROPHILS # (AUTO) 11.8 X10'3 (1.8-7.7); NEUTROPHILS % (AUTO) 79.2 % (42-75); PLATELET COUNT 181 X10'3 (140-440); RED BLOOD COUNT 4.32 X10'6 (4.20-5.60); RED CELL DISTRIBUTION WIDTH 16.1 % (11.5-14.5); WHITE BLOOD COUNT 14.9 X10'3 (4.5-11.0)
[2019-09-27 01:30] LABS: ALBUMIN 3.7 G/DL (3.4-5.0); ANION GAP 6 (8-16); BLOOD UREA NITROGEN 32 MG/DL (7-18); CALCIUM 9.1 MG/DL (8.5-10.1); CHLORIDE 104 MMOL/L (99-107); CREATININE 1.23 MG/DL (0.40-0.90); GLUCOSE 92 MG/DL (70-104); POTASSIUM 3.9 MMOL/L (3.5-5.1); SODIUM 141 MMOL/L (135-145); TOTAL CARBON DIOXIDE 31.3 MMOL/L (24-32); eGFR 45 ML/MIN
[2019-09-27 02:00] VITALS: BP 137/64
[2019-09-27 06:00] VITALS: BP 160/84
--- NOTE | 2019-09-27 06:05 | NUR ---
Patient in room MED 316. I have received report from DEMAR Max and had the opportunity to ask questions and assume patient care.
--- NOTE | 2019-09-27 06:44 | NUR ---
Problems reprioritized. Patient report given, questions answered & plan of care reviewed with Genet BENZ.
[2019-09-27] MEDS: potassium Cl 20 mEq SR tablet PO SCH (07:53)
[2019-09-27] MEDS: carvedilol 6.25mg tablet PO SCH (07:54)
[2019-09-27] MEDS: magnesium Cl slow-release 64mg tablet PO SCH (07:54)
[2019-09-27] MEDS: furosemide 40mg tablet PO SCH (07:54)
[2019-09-27] MEDS: atorvastatin 10mg tablet PO SCH (07:54)
[2019-09-27] MEDS: aspirin 81mg tablet.DR PO SCH (07:54)
[2019-09-27] MEDS: pantoprazole 40mg Tablet.DR PO SCH (07:54)
[2019-09-27] MEDS: digoxin 125mcg (0.125mg) tablet PO SCH (07:54)
[2019-09-27] MEDS: sennosides/docusate sodium tablet PO SCH (07:55)
--- NOTE | 2019-09-27 08:02 | NUR ---
Patient refusing blood glucose assessments. Education provided on importance of assessment and rationale. Patient verbalized understanding.
[2019-09-27] MEDS ORDERED: ASPI-1071 PO (08:50)
[2019-09-27] MEDS ORDERED: magnesium Cl slow-release 64mg tablet PO ONE (08:55)
--- NOTE | 2019-09-27 09:26 | NUR ---
Patient removed library monitor, education and rationale provided. Patient verbalized understanding.
--- NOTE | 2019-09-27 09:26 | NUR ---
MARGUERITE Morales, ordered 128mg Slow Mag PO and OK to stop IV Mag infusion due to patient complaint of burning at IV site.
--- NOTE | 2019-09-27 09:47 | NUR ---
F/u: Pt pending d/c today per RN. Pt seen by LIZBETH for verbal high protein/heart healthy diet ed reinforcement; pt declined verbal ed review and ed was on the floor. LIZBETH placed ed back on pt bedside and encouraged pt to contact RD if further questions. Addendum: 09/27/19 at [address] Amended: Links added.
--- NOTE | 2019-09-27 11:30 | NUR ---
Patient refused 1100 vital signs. Patient verbalized understanding of education on rationale and importance of monitoring per MD orders.
--- NOTE | 2019-09-27 14:21 | NUR ---
Cancelled 10/03/[address] follow [address]. De Los Santos per patient request. Patient stated that she will call Dr. Mancia's office to make an appointment within 4 weeks from now.
--- NOTE | 2019-09-27 14:27 | NUR ---
Patient stable for discharge per MD orders. [place] Rx given to patient; all other prescriptions e-transmitted to [facility]. All discharge instructions reviewed and sent with patient. All questions answered. PIV discontinued, cannula intact. Clean, dry dressing in place. All personal belongings collected and sent with patient. Patient wheeled to [facility] by hospital personnel at 1425 to be transported to [facility] by friend.
== END 2019-09-27 14:25 | disposition home health service (06) | DRG 160 ==
LOC: ER 11:40 → ED HOLD 16:04 → PCU 3S 19:55 → MED 3N 09-20 10:38 → CICU 2S 09-22 10:05 → MED 3N 09-24 15:20
PROVIDERS: ADMIT Family Medicine; ATTEND Thoracic Surgery (Cardiothoracic Vascular Surgery)
PROC: 02UJ08Z Supplement Tricuspid Valve with Zooplastic Tissue, Open Approach (ICD-10-PCS; 2019-09-22)
PROC: 02L70CK Occlusion of Left Atrial Appendage with Extraluminal Device, Open Approach (ICD-10-PCS; 2019-09-22)
PROC: B24BZZ4 Ultrasonography of Heart with Aorta, Transesophageal (ICD-10-PCS; 2019-09-22)
PROC: 02UG08Z Supplement Mitral Valve with Zooplastic Tissue, Open Approach (ICD-10-PCS; principal; 2019-09-22 06:38)
DX: I08.1 Rheumatic disorders of both mitral and tricuspid valves (principal); N17.0 Acute kidney failure with tubular necrosis; I50.23 Acute on chronic systolic (congestive) heart failure; E11.22 Type 2 diabetes mellitus with diabetic chronic kidney disease; E11.65 Type 2 diabetes mellitus with hyperglycemia; I48.19 Other persistent atrial fibrillation; I31.3 Pericardial effusion (noninflammatory); I13.0 Hypertensive heart and chronic kidney disease with heart failure and stage 1 through stage 4 chronic kidney disease, or unspecified chronic kidney disease; I42.0 Dilated cardiomyopathy; E78.00 Pure hypercholesterolemia, unspecified; E78.5 Hyperlipidemia, unspecified; I25.10 Atherosclerotic heart disease of native coronary artery without angina pectoris; F12.90 Cannabis use, unspecified, uncomplicated; N18.3 Chronic kidney disease, stage 3 (moderate); J45.909 Unspecified asthma, uncomplicated; F41.9 Anxiety disorder, unspecified; Z79.01 Long term (current) use of anticoagulants; Z81.8 Family history of other mental and behavioral disorders; Z82.49 Family history of ischemic heart disease and other diseases of the circulatory system; Z82.5 Family history of asthma and other chronic lower respiratory diseases; Z87.891 Personal history of nicotine dependence; Z90.710 Acquired absence of both cervix and uterus; Z95.0 Presence of cardiac pacemaker; Z95.810 Presence of automatic (implantable) cardiac defibrillator; Z88.5 Allergy status to narcotic agent; Z79.899 Other long term (current) drug therapy
CPT/HCPCS: 0232T; 36415; 36600; 71045; 71046; 80048; 80053; 81003; 82330; 82435; 82803; 82947; 82948; 83036; 83735; 83880; 84100; 84132; 84295; 84484; 85018; 85025; 85347; 85384; 85610; 85730; 86885; 86900; 86901; 86920; 87081; 93005; 93312; 93325; 93350; 93880; 94002; 94003; 94010; 94668; 94760; 97110; 97116; 97161; 97164; 97530; 99285; A4618; A6258; A6449; A7000; A7048; C1713; C1751; C9113; G0378; J0131; J0690; J1170; J1250; J1265; J1644; J1650; J1815; J1940; J2060; J2250; J2260; J2704; J2720; J2795; J3370; J3475; J3480; J7030; J7040; J7050; J7120

== ENCOUNTER 2019-10-13 09:45 | Emergency (ER) | payer MEDICAID ==
[~2019-10-13] VITALS: Ht 167.6 cm; Wt 70.0 kg
[~2019-10-13 09:45] MED LIST changes: +ASPI-1071 PO; -ASPI81TA52 PO; -CEPH-572 PO; -DOXY100C76 PO; -PRED20TA PO; -TAM75C PO
[2019-10-13 10:49] LABS: BASOPHILS # (AUTO) 0.1 X10'3 (0-0.2); BASOPHILS % (AUTO) 1.1 % (0-1); EOSINOPHILS # (AUTO) 0.3 X10'3 (0-0.9); EOSINOPHILS % (AUTO) 3.7 % (0-6); HEMATOCRIT 36.5 % (35.0-45.0); HEMOGLOBIN 12.2 g/dl (12.0-16.0); LYMPHOCYTES # (AUTO) 1.3 X10'3 (1.1-4.8); LYMPHOCYTES % (AUTO) 14.1 % (21-51); MEAN CORPUSCULAR HEMOGLOBIN 28.1 PG (27.0-31.0); MEAN CORPUSCULAR HGB CONC 33.4 g/dL (33.0-36.5); MEAN CORPUSCULAR VOLUME 84.3 FL (78-98); MEAN PLATELET VOLUME 7.9 FL (7.4-10.4); MONOCYTES # (AUTO) 0.7 X10'3 (0-0.9); MONOCYTES % (AUTO) 7.4 % (2-12); NEUTROPHILS # (AUTO) 6.7 X10'3 (1.8-7.7); NEUTROPHILS % (AUTO) 73.7 % (42-75); PLATELET COUNT 303 X10'3 (140-440); RED BLOOD COUNT 4.33 X10'6 (4.20-5.60); RED CELL DISTRIBUTION WIDTH 15.6 % (11.5-14.5); WHITE BLOOD COUNT 9.1 X10'3 (4.5-11.0)
[2019-10-13 11:04] LABS: ALANINE AMINOTRANSFERASE 14 U/L (12-78); ALBUMIN 3.6 G/DL (3.4-5.0); ALBUMIN/GLOBULIN RATIO 0.8 (1.1-1.5); ALKALINE PHOSPHATASE 98 IU/L (46-116); ANION GAP 7 (8-16); ASPARTATE AMINO TRANSFERASE 20 U/L (10-37); BILIRUBIN,TOTAL 0.6 MG/DL (0.1-1.0); BLOOD UREA NITROGEN 19 MG/DL (7-18); BUN/CREATININE RATIO 14.5 (6.6-38.0); CALCIUM 9.2 MG/DL (8.5-10.1); CHLORIDE 105 MMOL/L (99-107); CREATININE 1.31 MG/DL (0.40-0.90); GLUCOSE 123 MG/DL (70-104); POTASSIUM 4.1 MMOL/L (3.5-5.1); SODIUM 142 MMOL/L (135-145); TOTAL CARBON DIOXIDE 29.7 MMOL/L (24-32); TOTAL PROTEIN 8.3 G/DL (6.4-8.2); eGFR 42 ML/MIN
[2019-10-13] MEDS ORDERED: ASPI81TA47 PO (13:57)
[2019-10-13] MEDS ORDERED: CARV6.253 PO (13:57)
[2019-10-13] MEDS ORDERED: ALBU8.5H8 IH (13:57)
[2019-10-13] MEDS ORDERED: apixaban 5mg tablet PO SCH ×2 (14:10→20:00)
[2019-10-13] MEDS ORDERED: amiodarone 150mg/dext, iso-os 100 ML IV ONE (14:15)
[2019-10-13] MEDS ORDERED: ATOR20TA66 PO (14:17)
[2019-10-13 14:28] LABS: CLARITY,URINE SLIGHTLY CLOUDY (Clear); COLOR,URINE YELLOW (Yellow); GLUCOSE, URINE NEGATIVE (Neg); KETONES,URINE NEGATIVE (Neg); LEUKOCYTE ESTERASE ,URINE NEGATIVE (Neg); NITRITES, URINE NEGATIVE (Neg); OCCULT BLOOD,URINE NEGATIVE (Neg); PROTEIN,URINE TRACE mg/dl (Neg); UROBILINOGEN,URINE 0.2 E.U/dL (0.2-1.0)
[2019-10-13 14:29] LABS: URINE AMPHETAMINE SCREEN NEGATIVE (Neg); URINE BARBITUATE SCREEN NEGATIVE (Neg); URINE BENZODIAZEPINES SCREEN NEGATIVE (Neg); URINE CANNABINOID SCREEN POSITIVE (Neg); URINE COCAINE SCREEN NEGATIVE (Neg); URINE METHADONE SCREEN NEGATIVE (Neg); URINE OPIATE SCREEN NEGATIVE (Neg); URINE PHENCYCLIDINE SCREEN NEGATIVE (Neg)
[2019-10-13 14:36] LABS: UA COLLECTION TYPE CLN CATCH MIDSTREAM
[2019-10-13 14:37] LABS: HYALINE CASTS 0-3 /LPF (NEGATIVE); MUCUS STRANDS MODERATE /LPF (Neg); SQUAMOUS EPITHELIAL CELL,UR MANY /LPF (FEW)
[2019-10-13 14:38] LABS: BACTERIA,URINE FEW /HPF (Neg); RBC,URINE 0-2 /HPF (0-2); WBC,URINE 0-4 /HPF (0-4)
[2019-10-13] MEDS ORDERED: ALBUTEROL INHALER 1 PUFF/90 MCG INHALER IH PRN (14:45)
[2019-10-13] MEDS ORDERED: APIX5TAB3 PO (14:49)
[2019-10-13] MEDS ORDERED: AMIO200T61 PO (14:49)
[2019-10-13] MEDS ORDERED: albuterol 2.5 MG/3 ML nebule NEB PRN (14:55)
[2019-10-13 16:33] VITALS: BP 143/67
[2019-10-13] MEDS ORDERED: carvedilol 6.25mg tablet PO SCH (20:00)
[2019-10-14] MEDS ORDERED: potassium Cl 20 mEq SR tablet PO SCH (08:00)
[2019-10-14] MEDS ORDERED: atorvastatin 20mg tablet PO SCH (08:00)
[2019-10-14] MEDS ORDERED: aspirin 81mg tablet.DR PO SCH (08:00)
[2019-10-14] MEDS ORDERED: furosemide 40mg tablet PO SCH (08:00)
[2019-10-14] MEDS ORDERED: pantoprazole 40mg Tablet.DR PO SCH (08:00)
[2019-10-14] MEDS ORDERED: losartan 25mg tablet PO SCH (08:00)
[2019-10-14] MEDS ORDERED: digoxin 125mcg (0.125mg) tablet PO SCH (08:00)
[2019-10-14] MEDS ORDERED: AMIO200T27 PO (16:50)
[2019-10-14] MEDS ORDERED: CARV-50 PO (16:55)
== END 2019-10-13 16:37 | disposition home or self-care (01) ==
LOC: ER 09:45
DX: I47.2 Ventricular tachycardia (principal); I50.9 Heart failure, unspecified; E78.00 Pure hypercholesterolemia, unspecified; I11.0 Hypertensive heart disease with heart failure; J45.909 Unspecified asthma, uncomplicated; E11.9 Type 2 diabetes mellitus without complications; F41.9 Anxiety disorder, unspecified; F12.90 Cannabis use, unspecified, uncomplicated; Z88.5 Allergy status to narcotic agent; Z88.8 Allergy status to other drugs, medicaments and biological substances; Z79.01 Long term (current) use of anticoagulants; Z79.82 Long term (current) use of aspirin; Z79.899 Other long term (current) drug therapy
CPT/HCPCS: 36415; 71046; 80053; 80305; 81001; 84484; 85025; 93005; 93306; 96365; 99285

== ENCOUNTER 2019-10-14 14:09 | Inpatient (IN) | payer MEDICAID ==
[~2019-10-14] VITALS: Ht 167.6 cm; Wt 80.7 kg
[~2019-10-14 14:09] MED LIST changes: -ALBU6.7H9 INH; +ALBU8.5H8 IH; +AMIO200T61 PO; -ASPI-1071 PO; +ASPI81TA47 PO; -ATOR10TA87 PO; +ATOR20TA66 PO; -CARV-50 PO; +CARV6.253 PO
[2019-10-14] MEDS ORDERED: aspirin 81mg tab.chew PO ONE (14:25)
[2019-10-14 15:00] LABS: BASOPHILS # (AUTO) 0.1 X10'3 (0-0.2); BASOPHILS % (AUTO) 1.2 % (0-1); EOSINOPHILS # (AUTO) 0.3 X10'3 (0-0.9); EOSINOPHILS % (AUTO) 3.6 % (0-6); HEMATOCRIT 36.6 % (35.0-45.0); LYMPHOCYTES # (AUTO) 1.1 X10'3 (1.1-4.8); LYMPHOCYTES % (AUTO) 12.1 % (21-51); MEAN CORPUSCULAR HEMOGLOBIN 27.7 PG (27.0-31.0); MEAN CORPUSCULAR HGB CONC 32.7 g/dL (33.0-36.5); MEAN CORPUSCULAR VOLUME 84.8 FL (78-98); MEAN PLATELET VOLUME 8.1 FL (7.4-10.4); MONOCYTES # (AUTO) 0.7 X10'3 (0-0.9); MONOCYTES % (AUTO) 7.2 % (2-12); NEUTROPHILS # (AUTO) 6.9 X10'3 (1.8-7.7); NEUTROPHILS % (AUTO) 75.9 % (42-75); PLATELET COUNT 297 X10'3 (140-440); RED BLOOD COUNT 4.32 X10'6 (4.20-5.60)
[2019-10-14] MEDS ORDERED: amiodarone 200mg tablet PO ONE (15:10)
[2019-10-14] MEDS ORDERED: apixaban 5mg tablet PO SCH (15:10)
[2019-10-14 15:16] LABS: ALANINE AMINOTRANSFERASE 14 U/L (12-78); ALBUMIN 3.4 G/DL (3.4-5.0); ALBUMIN/GLOBULIN RATIO 0.8 (1.1-1.5); ALKALINE PHOSPHATASE 95 IU/L (46-116); ANION GAP 8 (8-16); ASPARTATE AMINO TRANSFERASE 21 U/L (10-37); BILIRUBIN,TOTAL 0.5 MG/DL (0.1-1.0); BLOOD UREA NITROGEN 21 MG/DL (7-18); BUN/CREATININE RATIO 19.4 (6.6-38.0); CALCIUM 9.3 MG/DL (8.5-10.1); CHLORIDE 106 MMOL/L (99-107); CREATININE 1.08 MG/DL (0.40-0.90); GLUCOSE 142 MG/DL (70-104); SODIUM 142 MMOL/L (135-145); TOTAL CARBON DIOXIDE 28.3 MMOL/L (24-32); TOTAL PROTEIN 7.8 G/DL (6.4-8.2); eGFR 53 ML/MIN
[2019-10-14 15:23] LABS: MAGNESIUM 1.9 MG/DL (1.5-2.4)
[2019-10-14] MEDS ORDERED: losartan 50mg tablet PO ONE (16:20)
[2019-10-14] MEDS ORDERED: AMIO200T27 PO (16:50)
[2019-10-14] MEDS ORDERED: CARV-50 PO (16:55)
[2019-10-14] MEDS ORDERED: acetaminophen 325mg tablet PO PRN ×2 (17:05)
[2019-10-14] MEDS ORDERED: amiodarone 200mg tablet PO SCH ×2 (17:05→20:00)
[2019-10-14] MEDS ORDERED: mag hydrox/Alum hydrox/simeth 30ml oral suspension PO PRN (17:05)
[2019-10-14] MEDS ORDERED: HYDROcodone/acetaminophen 5mg/325mg tablet PO PRN (17:05)
[2019-10-14] MEDS ORDERED: magnesium hydroxide 30ml (MOM) UD suspension PO PRN (17:05)
[2019-10-14] MEDS ORDERED: HYDROcodone/acetaminophen 10/325mg tab PO PRN (17:05)
[2019-10-14] MEDS ORDERED: HYDROmorphone inj. 0.5 MG/0.5 ML DISP.SYRIN IV PRN (17:05)
[2019-10-14] MEDS ORDERED: ondansetron/PF 4mg/2ml inj IV PRN (17:05)
[2019-10-14] MEDS ORDERED: ALBUTEROL INHALER 1 PUFF/90 MCG INHALER IH PRN (17:10)
[2019-10-14] MEDS ORDERED: albuterol 2.5 MG/3 ML nebule NEB PRN (17:15)
[2019-10-14] MEDS ORDERED: carVEDilol 12.5mg tablet PO SCH ×2 (17:42→20:00)
[2019-10-14] MEDS: amiodarone/D5 360MG/200ML BAG 200 ML IV SCH (18:36)
[2019-10-14 19:10] VITALS: BP 121/101
[2019-10-14 20:00] VITALS: BP 118/77
[2019-10-14] MEDS: furosemide 40mg/4ml inj IV SCH (20:13)
[2019-10-14] MEDS: carVEDilol 12.5mg tablet PO SCH (20:14)
[2019-10-14] MEDS: apixaban 5mg tablet PO SCH (20:14)
[2019-10-14 22:00] VITALS: BP 108/93
[2019-10-15] VITALS (13 sets, daily range): BP systolic 76–122; BP diastolic 52–84
[2019-10-15] MEDS: amiodarone/D5 360MG/200ML BAG 200 ML IV SCH ×3 (01:08→12:37)
[2019-10-15 02:49] LABS: BASOPHILS # (AUTO) 0.1 X10'3 (0-0.2); BASOPHILS % (AUTO) 1.4 % (0-1); EOSINOPHILS # (AUTO) 0.3 X10'3 (0-0.9); EOSINOPHILS % (AUTO) 3.3 % (0-6); HEMATOCRIT 33.2 % (35.0-45.0); HEMOGLOBIN 11.2 g/dl (12.0-16.0); LYMPHOCYTES # (AUTO) 1.3 X10'3 (1.1-4.8); LYMPHOCYTES % (AUTO) 15.9 % (21-51); MEAN CORPUSCULAR HEMOGLOBIN 28.1 PG (27.0-31.0); MEAN CORPUSCULAR HGB CONC 33.6 g/dL (33.0-36.5); MEAN CORPUSCULAR VOLUME 83.7 FL (78-98); MEAN PLATELET VOLUME 8.1 FL (7.4-10.4); MONOCYTES # (AUTO) 0.6 X10'3 (0-0.9); MONOCYTES % (AUTO) 7.1 % (2-12); NEUTROPHILS # (AUTO) 5.9 X10'3 (1.8-7.7); NEUTROPHILS % (AUTO) 72.3 % (42-75); PLATELET COUNT 264 X10'3 (140-440); RED BLOOD COUNT 3.97 X10'6 (4.20-5.60); RED CELL DISTRIBUTION WIDTH 15.8 % (11.5-14.5); WHITE BLOOD COUNT 8.2 X10'3 (4.5-11.0)
[2019-10-15 03:11] LABS: ANION GAP 7 (8-16); BLOOD UREA NITROGEN 23 MG/DL (7-18); BUN/CREATININE RATIO 18.9 (6.6-38.0); CALCIUM 8.7 MG/DL (8.5-10.1); CHLORIDE 105 MMOL/L (99-107); CREATININE 1.22 MG/DL (0.40-0.90); GLUCOSE 111 MG/DL (70-104); POTASSIUM 3.7 MMOL/L (3.5-5.1); SODIUM 141 MMOL/L (135-145); TOTAL CARBON DIOXIDE 28.9 MMOL/L (24-32); eGFR 46 ML/MIN
--- NOTE | 2019-10-15 06:05 | NUR ---
Patient in room PCU 3018B. I have received report from Rei Barrios RN and had the opportunity to ask questions and assume patient care. Patient laying in bed, eyes closed, no signs of distress, amnio infusing, on bedside monitor. Will continue to monitor.
--- NOTE | 2019-10-15 06:18 | NUR ---
Problems reprioritized. Patient report given, questions answered & plan of care reviewed with Elodia BENZ.
--- NOTE | 2019-10-15 07:10 | NUR ---
PAGER ID: [phone] MESSAGE: Elodia bucio [phone]. RE Jen Gonsalez [phone]. FYI Pt had elevated trops: 0.24, 1.57, 1.48, and 1.51. Status post AICD firing x8 prior to admit. On amnio drip. No complaints of pain. Thanks!
[2019-10-15] MEDS: furosemide 40mg/4ml inj IV SCH ×2 (07:54→21:00)
[2019-10-15] MEDS: losartan 25mg tablet PO SCH (07:54)
[2019-10-15] MEDS: carVEDilol 12.5mg tablet PO SCH ×2 (07:54→21:01)
[2019-10-15] MEDS: potassium Cl 20 mEq SR tablet PO SCH (07:55)
[2019-10-15] MEDS: apixaban 5mg tablet PO SCH ×2 (07:55→21:01)
[2019-10-15] MEDS: aspirin 81mg tablet.DR PO SCH (07:55)
[2019-10-15] MEDS: digoxin 125mcg (0.125mg) tablet PO SCH (07:56)
[2019-10-15] MEDS: atorvastatin 20mg tablet PO SCH (07:56)
[2019-10-15] MEDS: pantoprazole 40mg Tablet.DR PO SCH (07:57)
[2019-10-15] MEDS: lisinopril 2.5mg tablet PO SCH (07:57)
--- NOTE | 2019-10-15 08:16 | NUR ---
Spoke with Dr. Lara via phone regarding patient's elevated trops. Patient has no complaints of chest pain, shortness of breath, or palpitations. States that she feels well at this time. On amnio gtt and heart rate is afib in the 70-80's. Dr. 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
--- NOTE | 2019-10-15 18:28 | NUR ---
Problems reprioritized. Patient report given, questions answered & plan of care reviewed with Ang RN. Patient sitting up in bed, no signs of distress.
--- NOTE | 2019-10-15 18:30 | NUR ---
Patient in room PCU 3018. I have received report from Elodia Liriano RN and had the opportunity to ask questions and assume patient care.
[2019-10-15] MEDS: amiodarone 200mg tablet PO SCH (21:01)
[2019-10-16 02:00] VITALS: BP 95/61
[2019-10-16 05:51] LABS: BASOPHILS # (AUTO) 0.1 X10'3 (0-0.2); EOSINOPHILS # (AUTO) 0.4 X10'3 (0-0.9); HEMATOCRIT 34.8 % (35.0-45.0); HEMOGLOBIN 11.7 g/dl (12.0-16.0); LYMPHOCYTES # (AUTO) 1.2 X10'3 (1.1-4.8); LYMPHOCYTES % (AUTO) 13.6 % (21-51); MEAN CORPUSCULAR HEMOGLOBIN 28.2 PG (27.0-31.0); MEAN CORPUSCULAR HGB CONC 33.7 g/dL (33.0-36.5); MEAN CORPUSCULAR VOLUME 83.9 FL (78-98); MEAN PLATELET VOLUME 8.1 FL (7.4-10.4); MONOCYTES # (AUTO) 0.5 X10'3 (0-0.9); MONOCYTES % (AUTO) 5.8 % (2-12); NEUTROPHILS # (AUTO) 6.7 X10'3 (1.8-7.7); NEUTROPHILS % (AUTO) 75.6 % (42-75); PLATELET COUNT 274 X10'3 (140-440); RED BLOOD COUNT 4.14 X10'6 (4.20-5.60); RED CELL DISTRIBUTION WIDTH 15.7 % (11.5-14.5); WHITE BLOOD COUNT 8.8 X10'3 (4.5-11.0)
[2019-10-16 06:00] VITALS: BP 127/81
[2019-10-16 06:27] LABS: ALBUMIN 3.1 G/DL (3.4-5.0); ANION GAP 9 (8-16); BLOOD UREA NITROGEN 23 MG/DL (7-18); BUN/CREATININE RATIO 18.1 (6.6-38.0); CALCIUM 8.7 MG/DL (8.5-10.1); CHLORIDE 104 MMOL/L (99-107); CREATININE 1.27 MG/DL (0.40-0.90); GLUCOSE 102 MG/DL (70-104); POTASSIUM 3.8 MMOL/L (3.5-5.1); SODIUM 141 MMOL/L (135-145); TOTAL CARBON DIOXIDE 27.9 MMOL/L (24-32); eGFR 44 ML/MIN
--- NOTE | 2019-10-16 06:34 | NUR ---
Problems reprioritized. Patient report given, questions answered & plan of care reviewed with Mana Liriano RN.
--- NOTE | 2019-10-16 07:05 | NUR ---
Patient in room PCU 3018. I have received report from Ang RN and had the opportunity to ask questions and assume patient care.
[2019-10-16] MEDS: furosemide 40mg/4ml inj IV SCH ×2 (08:06→20:08)
[2019-10-16] MEDS: atorvastatin 20mg tablet PO SCH (08:06)
[2019-10-16] MEDS: apixaban 5mg tablet PO SCH ×2 (08:06→20:08)
[2019-10-16] MEDS: potassium Cl 20 mEq SR tablet PO SCH (08:06)
[2019-10-16] MEDS: lisinopril 2.5mg tablet PO SCH (08:06)
[2019-10-16] MEDS: losartan 25mg tablet PO SCH (08:07)
[2019-10-16] MEDS: pantoprazole 40mg Tablet.DR PO SCH (08:07)
[2019-10-16] MEDS: aspirin 81mg tablet.DR PO SCH (08:07)
[2019-10-16] MEDS: digoxin 125mcg (0.125mg) tablet PO SCH (08:07)
[2019-10-16] MEDS: carVEDilol 12.5mg tablet PO SCH ×2 (08:07→20:08)
[2019-10-16] MEDS: amiodarone 200mg tablet PO SCH ×2 (08:09→20:08)
[2019-10-16 11:00] VITALS: BP 121/68
--- NOTE | 2019-10-16 11:01 | NUR ---
PAGER ID: [phone] MESSAGE: [id number] Lilia Calabrese Patient became tachy with ambulation into 120's. Pt. does not want to DC today. Mana BENZ [phone]
[2019-10-16 15:00] VITALS: BP 123/78
--- NOTE | 2019-10-16 18:00 | NUR ---
Patient in room PCU 3018B. I have received report from DEMAR Adair and had the opportunity to ask questions and assume patient care.
--- NOTE | 2019-10-16 18:49 | NUR ---
Problems reprioritized. Patient report given, questions answered & plan of care reviewed with Hayden BENZ.
[2019-10-16 19:00] VITALS: BP 110/64
[2019-10-16 23:00] VITALS: BP 120/75
[2019-10-17 03:00] VITALS: BP 115/90
--- NOTE | 2019-10-17 03:02 | NUR ---
Patient is refusing to use the bedside commode. Attempted to explain to patient that when she ambulates her heart rate quickly accelerates to 130's. At the time of conversation patient was also desating to 87% on room air. She replied that, "She doesn't think that is correct," even though patient is connected to mobile 61. Expressed concerns to patient and reminded patient that she requested to stay another night because she did not feel safe due to her high heart rate when ambulating with PT during day shift. Thus under my nursing care, I do not feel comfortable getting her up with out physical therapy confirming that patient can safely go home with out a spike in HR. Patient threatened that she would, "rip out every thing and go anyway." I responded that, "a non-compliance care plan would be added to chart, MD will be notified of non-compliance, and reporting day RN will also be notified, and will be re-attaching you back to the mobile and inserting another IV if you choose to make that decision." beater worker helper aware. Non-compliance care plan added.
[2019-10-17 05:27] LABS: ALBUMIN 3.2 G/DL (3.4-5.0); ANION GAP 6 (8-16); BLOOD UREA NITROGEN 34 MG/DL (7-18); BUN/CREATININE RATIO 18.4 (6.6-38.0); CALCIUM 8.8 MG/DL (8.5-10.1); CHLORIDE 103 MMOL/L (99-107); CREATININE 1.85 MG/DL (0.40-0.90); GLUCOSE 110 MG/DL (70-104); POTASSIUM 3.9 MMOL/L (3.5-5.1); SODIUM 141 MMOL/L (135-145); eGFR 28 ML/MIN
[2019-10-17 06:30] VITALS: BP 116/82
--- NOTE | 2019-10-17 06:33 | NUR ---
Patient in room PCU 3018B. I have received report from Hayden BENZ and had the opportunity to ask questions and assume patient care.
--- NOTE | 2019-10-17 06:36 | NUR ---
Problems reprioritized. Patient report given, questions answered & plan of care reviewed with DEMAR Medina.
[2019-10-17 06:37] LABS: BASOPHILS # (AUTO) 0.1 X10'3 (0-0.2); BASOPHILS % (AUTO) 0.8 % (0-1); EOSINOPHILS # (AUTO) 0.5 X10'3 (0-0.9); EOSINOPHILS % (AUTO) 4.8 % (0-6); HEMATOCRIT 34.9 % (35.0-45.0); HEMOGLOBIN 11.6 g/dl (12.0-16.0); LYMPHOCYTES # (AUTO) 1.2 X10'3 (1.1-4.8); LYMPHOCYTES % (AUTO) 12.3 % (21-51); MEAN CORPUSCULAR HEMOGLOBIN 27.7 PG (27.0-31.0); MEAN CORPUSCULAR HGB CONC 33.3 g/dL (33.0-36.5); MEAN CORPUSCULAR VOLUME 83.3 FL (78-98); MEAN PLATELET VOLUME 8.4 FL (7.4-10.4); MONOCYTES # (AUTO) 0.6 X10'3 (0-0.9); MONOCYTES % (AUTO) 6.1 % (2-12); NEUTROPHILS # (AUTO) 7.4 X10'3 (1.8-7.7); PLATELET COUNT 281 X10'3 (140-440); RED CELL DISTRIBUTION WIDTH 15.8 % (11.5-14.5); WHITE BLOOD COUNT 9.7 X10'3 (4.5-11.0)
[2019-10-17] MEDS: furosemide 40mg/4ml inj IV SCH (07:42)
[2019-10-17] MEDS: carVEDilol 12.5mg tablet PO SCH (07:43)
[2019-10-17] MEDS: lisinopril 2.5mg tablet PO SCH (07:43)
[2019-10-17] MEDS: amiodarone 200mg tablet PO SCH (07:43)
[2019-10-17] MEDS: losartan 25mg tablet PO SCH (07:43)
[2019-10-17] MEDS: potassium Cl 20 mEq SR tablet PO SCH (07:43)
[2019-10-17] MEDS: aspirin 81mg tablet.DR PO SCH (07:43)
[2019-10-17] MEDS: atorvastatin 20mg tablet PO SCH (07:44)
[2019-10-17] MEDS: pantoprazole 40mg Tablet.DR PO SCH (07:44)
[2019-10-17] MEDS: apixaban 5mg tablet PO SCH (07:44)
[2019-10-17] MEDS: digoxin 125mcg (0.125mg) tablet PO SCH (07:44)
[2019-10-17 11:00] VITALS: BP 112/59
[2019-10-17] MEDS ORDERED: AMIO200T27 PO (11:10)
[2019-10-17] MEDS ORDERED: CARV-50 PO (11:27)
[2019-10-17] MEDS ORDERED: PANT-47 PO (11:27)
[2019-10-17] MEDS ORDERED: LISI2.5T2 PO (11:27)
[2019-10-17] MEDS ORDERED: APIX5TAB3 PO (11:27)
--- NOTE | 2019-10-17 12:17 | NUR ---
Per MD, patient stable for discharge home. New prescriptions given to [facility] on [place]. Patient and case management discussed regarding patient gathering belongings from house, as she is now going to her daughters house after discharge. Discharge packet provided to patient and patient educated to follow up with Dr Mancia, patient's outpatient care transport nurse. IV removed with catheter intact and tele monitor removed and returned to [employer]. All belongings sent with patient.Patient escorted from hospital via wheelchair, accompanied by staff and driven home via taxi arranged by [employer].
--- NOTE | 2019-10-17 17:00 | NUR ---
Dr Lara called to say that he wanted patient's Coreg 12.5 mg BID that she discharged on to increased to 25 mg BID. Called patient's pharmacy, [facility], and they were able to change the medication order. Also called patient and left a message for her to call the hospital. Addendum: 10/17/19 at 1719 by Carol Reaves RN Patient called back and was notified of medication change.
== END 2019-10-17 12:18 | disposition home or self-care (01) | DRG 190 ==
LOC: ER 14:10 → ED HOLD 17:02 → PCU 3S 19:00
PROVIDERS: ADMIT Internal Medicine; ATTEND Family Medicine
DX: I21.A1 Myocardial infarction type 2 (principal); I47.2 Ventricular tachycardia; E11.22 Type 2 diabetes mellitus with diabetic chronic kidney disease; I42.9 Cardiomyopathy, unspecified; I08.1 Rheumatic disorders of both mitral and tricuspid valves; I13.0 Hypertensive heart and chronic kidney disease with heart failure and stage 1 through stage 4 chronic kidney disease, or unspecified chronic kidney disease; I50.22 Chronic systolic (congestive) heart failure; E78.00 Pure hypercholesterolemia, unspecified; E78.5 Hyperlipidemia, unspecified; F41.9 Anxiety disorder, unspecified; I48.0 Paroxysmal atrial fibrillation; I48.20 Chronic atrial fibrillation, unspecified; J44.9 Chronic obstructive pulmonary disease, unspecified; N18.3 Chronic kidney disease, stage 3 (moderate); Z79.01 Long term (current) use of anticoagulants; Z79.899 Other long term (current) drug therapy; Z82.49 Family history of ischemic heart disease and other diseases of the circulatory system; Z87.891 Personal history of nicotine dependence
CPT/HCPCS: 36415; 71045; 80048; 80053; 83735; 83880; 84484; 85025; 87081; 93005; 94760; 97116; 97161; 97530; 99285; G0378; J1940

== ENCOUNTER 2019-11-23 02:55 | Emergency (ER) | payer MEDICAID ==
[~2019-11-23] VITALS: Ht 167.6 cm; Wt 70.0 kg
[~2019-11-23 02:55] MED LIST changes: +AMIO200T27 PO; -AMIO200T61 PO; +CARV-50 PO; -CARV6.253 PO
[2019-11-23 02:57] VITALS: BP 167/100
[2019-11-23] MEDS ORDERED: ketorolac trometh inj. 60 MG/2 ML VIAL IM ONE (03:25)
[2019-11-23] MEDS ORDERED: TRAM50TA2 PO (03:25)
== END 2019-11-23 03:45 | disposition home or self-care (01) ==
LOC: ER 02:55
DX: K02.9 Dental caries, unspecified (principal); I11.0 Hypertensive heart disease with heart failure; I50.9 Heart failure, unspecified; E78.00 Pure hypercholesterolemia, unspecified; J45.909 Unspecified asthma, uncomplicated; E11.9 Type 2 diabetes mellitus without complications; F41.9 Anxiety disorder, unspecified; Z95.0 Presence of cardiac pacemaker; F12.90 Cannabis use, unspecified, uncomplicated; Z88.5 Allergy status to narcotic agent; Z88.8 Allergy status to other drugs, medicaments and biological substances; Z79.82 Long term (current) use of aspirin; Z79.01 Long term (current) use of anticoagulants; Z79.899 Other long term (current) drug therapy
CPT/HCPCS: 96372; 99283; J1885

== ENCOUNTER 2019-11-25 03:45 | Emergency (ER) | payer MEDICAID ==
[~2019-11-25] VITALS: Ht 167.6 cm; Wt 82.4 kg
[~2019-11-25 03:45] MED LIST changes: +TRAM50TA2 PO
[2019-11-25 03:51] VITALS: BP 176/69
[2019-11-25] MEDS ORDERED: ketorolac trometh inj. 60 MG/2 ML VIAL IM ONE (04:15)
[2019-11-25] MEDS ORDERED: HYDR-3965 PO (04:15)
[2019-11-25] MEDS ORDERED: CLIN150C8 PO (04:15)
== END 2019-11-25 04:38 | disposition home or self-care (01) ==
LOC: ER 03:46
DX: K02.9 Dental caries, unspecified (principal); I11.0 Hypertensive heart disease with heart failure; I50.9 Heart failure, unspecified; E78.00 Pure hypercholesterolemia, unspecified; J45.909 Unspecified asthma, uncomplicated; E11.9 Type 2 diabetes mellitus without complications; F41.9 Anxiety disorder, unspecified; F12.90 Cannabis use, unspecified, uncomplicated; Z95.0 Presence of cardiac pacemaker; Z88.5 Allergy status to narcotic agent; Z88.8 Allergy status to other drugs, medicaments and biological substances; Z79.01 Long term (current) use of anticoagulants; Z79.82 Long term (current) use of aspirin; Z79.899 Other long term (current) drug therapy
CPT/HCPCS: 96372; 99283; J1885

== ENCOUNTER 2019-12-19 19:13 | Emergency (ER) | payer MEDICAID ==
[~2019-12-19] VITALS: Ht 167.6 cm; Wt 75.0 kg
[~2019-12-19 19:13] MED LIST changes: +CLIN150C8 PO; +HYDR-3965 PO; -TRAM50TA2 PO
[2019-12-19] MEDS ORDERED: ondansetron/PF 4mg/2ml inj IV ONE (20:00)
[2019-12-19] MEDS ORDERED: acetaminophen 325mg tablet PO ONE (20:00)
[2019-12-19] MEDS ORDERED: normal saline 1000ML IV soln IVB ONE (20:00)
[2019-12-19 21:34] LABS: BASOPHILS # (AUTO) 0.1 X10'3 (0-0.2); BASOPHILS % (AUTO) 0.7 % (0-1); EOSINOPHILS % (AUTO) 0.4 % (0-6); HEMATOCRIT 38.2 % (35.0-45.0); HEMOGLOBIN 12.6 g/dl (12.0-16.0); LYMPHOCYTES # (AUTO) 0.7 X10'3 (1.1-4.8); LYMPHOCYTES % (AUTO) 5.7 % (21-51); MEAN CORPUSCULAR HEMOGLOBIN 27.8 PG (27.0-31.0); MEAN CORPUSCULAR HGB CONC 32.9 g/dL (33.0-36.5); MEAN CORPUSCULAR VOLUME 84.5 FL (78-98); MONOCYTES # (AUTO) 0.8 X10'3 (0-0.9); MONOCYTES % (AUTO) 5.9 % (2-12); NEUTROPHILS # (AUTO) 11.2 X10'3 (1.8-7.7); NEUTROPHILS % (AUTO) 87.3 % (42-75); PLATELET COUNT 203 X10'3 (140-440); RED BLOOD COUNT 4.52 X10'6 (4.20-5.60); RED CELL DISTRIBUTION WIDTH 15.2 % (11.5-14.5); WHITE BLOOD COUNT 12.8 X10'3 (4.5-11.0)
[2019-12-19 21:43] LABS: ALANINE AMINOTRANSFERASE 27 U/L (12-78); ALBUMIN 3.5 G/DL (3.4-5.0); ALBUMIN/GLOBULIN RATIO 0.7 (1.1-1.5); ALKALINE PHOSPHATASE 77 IU/L (46-116); ANION GAP 8 (8-16); ASPARTATE AMINO TRANSFERASE 21 U/L (10-37); BILIRUBIN,TOTAL 0.6 MG/DL (0.1-1.0); BLOOD UREA NITROGEN 26 MG/DL (7-18); BUN/CREATININE RATIO 14.4 (6.6-38.0); CALCIUM 8.7 MG/DL (8.5-10.1); CHLORIDE 100 MMOL/L (99-107); CREATININE 1.81 MG/DL (0.40-0.90); GLUCOSE 138 MG/DL (70-104); POTASSIUM 4.2 MMOL/L (3.5-5.1); SODIUM 136 MMOL/L (135-145); TOTAL CARBON DIOXIDE 28.3 MMOL/L (24-32); TOTAL PROTEIN 8.2 G/DL (6.4-8.2); eGFR 29 ML/MIN
[2019-12-19 21:49] LABS: LIPASE 90 U/L (73-393)
[2019-12-19] MEDS ORDERED: ONDA4TAB6 PO (22:50)
[2019-12-19 23:21] LABS: CLARITY,URINE CLOUDY (Clear); COLOR,URINE YELLOW (Yellow); GLUCOSE, URINE NEGATIVE (Neg); KETONES,URINE NEGATIVE (Neg); LEUKOCYTE ESTERASE ,URINE MODERATE (Neg); NITRITES, URINE POSITIVE (Neg); OCCULT BLOOD,URINE LARGE (Neg); PROTEIN,URINE 30 mg/dl (Neg); UROBILINOGEN,URINE 0.2 E.U/dL (0.2-1.0)
[2019-12-19 23:25] LABS: URINE HCG NEGATIVE (NEG)
[2019-12-19 23:26] LABS: UA COLLECTION TYPE CLN CATCH MIDSTREAM
[2019-12-19 23:29] LABS: BACTERIA,URINE 4+ /HPF (Neg); SQUAMOUS EPITHELIAL CELL,UR MODERATE /LPF (FEW); TRANSITIONAL EPI CELLS,URINE FEW /HPF; WBC CLUMPS,URINE MODERATE /HPF (NEGATIVE); WBC,URINE 50-100 /HPF (0-4)
[2019-12-19] MEDS ORDERED: CefTRIAXone 2gm/D5W 50ml 50 ML IV ONE (23:35)
[2019-12-19] MEDS ORDERED: LACT1CAP75 PO (23:37)
[2019-12-19] MEDS ORDERED: CEPH500C5 PO (23:37)
[2019-12-19] MEDS ORDERED: cephalexin 250mg capsule PO ONE (23:40)
[2019-12-20 01:28] VITALS: BP 111/52
== END 2019-12-20 01:29 | disposition home or self-care (01) ==
LOC: ER 19:14
DX: N10 Acute pyelonephritis (principal); N18.9 Chronic kidney disease, unspecified; R11.2 Nausea with vomiting, unspecified; R50.9 Fever, unspecified; R19.7 Diarrhea, unspecified; I11.0 Hypertensive heart disease with heart failure; I50.9 Heart failure, unspecified; E78.00 Pure hypercholesterolemia, unspecified; J45.909 Unspecified asthma, uncomplicated; E11.9 Type 2 diabetes mellitus without complications; F41.9 Anxiety disorder, unspecified; F12.90 Cannabis use, unspecified, uncomplicated; Z95.0 Presence of cardiac pacemaker; Z88.5 Allergy status to narcotic agent; Z88.8 Allergy status to other drugs, medicaments and biological substances; Z79.82 Long term (current) use of aspirin; Z79.2 Long term (current) use of antibiotics; Z79.899 Other long term (current) drug therapy
CPT/HCPCS: 36415; 80053; 81001; 81025; 83690; 83880; 85025; 87077; 87088; 87186; 96365; 96375; 99284; J0696; J2405; J7030

== ENCOUNTER 2020-05-11 21:10 | Emergency (ER) | payer MEDICAID ==
[~2020-05-11] VITALS: Ht 167.6 cm; Wt 77.3 kg
[~2020-05-11 21:10] MED LIST changes: -HYDR-3965 PO; +LACT1CAP75 PO; +ONDA4TAB6 PO
[2020-05-11] MEDS ORDERED: cloNIDine 0.1 mg tablet PO ONE (23:00)
[2020-05-11 23:35] LABS: BASOPHILS # (AUTO) 0.1 X10'3 (0-0.2); BASOPHILS % (AUTO) 0.8 % (0-1); EOSINOPHILS # (AUTO) 0.2 X10'3 (0-0.9); EOSINOPHILS % (AUTO) 1.9 % (0-6); HEMATOCRIT 39.3 % (35.0-45.0); HEMOGLOBIN 12.9 g/dl (12.0-16.0); LYMPHOCYTES # (AUTO) 1.4 X10'3 (1.1-4.8); LYMPHOCYTES % (AUTO) 15.3 % (21-51); MEAN CORPUSCULAR HEMOGLOBIN 28.6 PG (27.0-31.0); MEAN CORPUSCULAR HGB CONC 32.9 g/dL (33.0-36.5); MEAN CORPUSCULAR VOLUME 86.8 FL (78-98); MEAN PLATELET VOLUME 8.6 FL (7.4-10.4); MONOCYTES # (AUTO) 0.5 X10'3 (0-0.9); MONOCYTES % (AUTO) 5.7 % (2-12); NEUTROPHILS # (AUTO) 7.1 X10'3 (1.8-7.7); NEUTROPHILS % (AUTO) 76.3 % (42-75); PLATELET COUNT 214 X10'3 (140-440); RED BLOOD COUNT 4.53 X10'6 (4.20-5.60); RED CELL DISTRIBUTION WIDTH 13.7 % (11.5-14.5); WHITE BLOOD COUNT 9.3 X10'3 (4.5-11.0)
[2020-05-11 23:42] LABS: ALANINE AMINOTRANSFERASE 64 U/L (12-78); ALBUMIN 3.6 G/DL (3.4-5.0); ALBUMIN/GLOBULIN RATIO 0.8 (1.1-1.5); ALKALINE PHOSPHATASE 79 IU/L (46-116); ANION GAP 6 (8-16); ASPARTATE AMINO TRANSFERASE 37 U/L (10-37); BILIRUBIN,TOTAL 0.3 MG/DL (0.1-1.0); BLOOD UREA NITROGEN 26 MG/DL (7-18); BUN/CREATININE RATIO 16.1 (6.6-38.0); CALCIUM 8.6 MG/DL (8.5-10.1); CHLORIDE 105 MMOL/L (99-107); CREATININE 1.61 MG/DL (0.40-0.90); GLUCOSE 128 MG/DL (70-104); POTASSIUM 3.9 MMOL/L (3.5-5.1); SODIUM 141 MMOL/L (135-145); TOTAL CARBON DIOXIDE 30.4 MMOL/L (24-32); TOTAL PROTEIN 7.9 G/DL (6.4-8.2); eGFR 33 ML/MIN
[2020-05-12 01:20] VITALS: BP 175/71
== END 2020-05-12 01:22 | disposition home or self-care (01) ==
LOC: ER 21:10
DX: I11.0 Hypertensive heart disease with heart failure (principal); R06.02 Shortness of breath; R51.9 Headache, unspecified; I50.9 Heart failure, unspecified; E78.00 Pure hypercholesterolemia, unspecified; J45.909 Unspecified asthma, uncomplicated; E11.9 Type 2 diabetes mellitus without complications; F41.9 Anxiety disorder, unspecified; F12.90 Cannabis use, unspecified, uncomplicated; Z95.0 Presence of cardiac pacemaker; Z88.5 Allergy status to narcotic agent; Z88.8 Allergy status to other drugs, medicaments and biological substances; Z79.82 Long term (current) use of aspirin; Z79.2 Long term (current) use of antibiotics; Z79.899 Other long term (current) drug therapy
CPT/HCPCS: 36415; 71045; 80053; 83880; 85025; 93005; 99285

== ENCOUNTER 2021-07-28 18:52 | Emergency (ER) | payer MEDICAID ==
[~2021-07-28] VITALS: Ht 167.6 cm; Wt 77.3 kg
[~2021-07-28 18:52] MED LIST changes: +ALBU8.5H17 IH; -ALBU8.5H8 IH; +LISI2.5T14 PO; -LISI2.5T2 PO; +POTA-207 PO; -POTA20TA19 PO
[2021-07-28] MEDS ORDERED: LORazepam 1 MG tablet PO ONE (19:25)
[2021-07-28 19:41] LABS: BASOPHILS # (AUTO) 0.1 X10'3 (0-0.2); BASOPHILS % (AUTO) 0.7 % (0-1); EOSINOPHILS # (AUTO) 0.1 X10'3 (0-0.9); EOSINOPHILS % (AUTO) 0.6 % (0-6); HEMATOCRIT 43.7 % (35.0-45.0); HEMOGLOBIN 14.6 g/dl (12.0-16.0); LYMPHOCYTES # (AUTO) 0.7 X10'3 (1.1-4.8); MEAN CORPUSCULAR HEMOGLOBIN 28.3 PG (27.0-31.0); MEAN CORPUSCULAR HGB CONC 33.3 g/dL (33.0-36.5); MEAN PLATELET VOLUME 9.4 FL (7.4-10.4); MONOCYTES # (AUTO) 0.3 X10'3 (0-0.9); MONOCYTES % (AUTO) 2.3 % (2-12); NEUTROPHILS # (AUTO) 10.7 X10'3 (1.8-7.7); NEUTROPHILS % (AUTO) 90.4 % (42-75); PLATELET COUNT 206 X10'3 (140-440); RED BLOOD COUNT 5.14 X10'6 (4.20-5.60); RED CELL DISTRIBUTION WIDTH 15.4 % (11.5-14.5); WHITE BLOOD COUNT 11.8 X10'3 (4.5-11.0)
[2021-07-28 19:53] LABS: ALANINE AMINOTRANSFERASE 21 U/L (12-78); ALBUMIN 4.2 G/DL (3.4-5.0); ALBUMIN/GLOBULIN RATIO 0.9 (1.1-1.5); ALKALINE PHOSPHATASE 87 IU/L (46-116); ANION GAP 12 (8-16); ASPARTATE AMINO TRANSFERASE 17 U/L (10-37); BILIRUBIN,TOTAL 0.7 MG/DL (0.1-1.0); BLOOD UREA NITROGEN 17 MG/DL (7-18); BUN/CREATININE RATIO 15.3 (6.6-38.0); CALCIUM 9.4 MG/DL (8.5-10.1); CHLORIDE 105 MMOL/L (99-107); CREATININE 1.11 MG/DL (0.40-0.90); GLUCOSE 113 MG/DL (70-104); POTASSIUM 4.3 MMOL/L (3.5-5.1); SODIUM 144 MMOL/L (135-145); TOTAL PROTEIN 8.7 G/DL (6.4-8.2); eGFR 51 ML/MIN
[2021-07-28] MEDS ORDERED: metoprolol tartrate 50mg tablet PO ONE (20:25)
[2021-07-28] MEDS ORDERED: carVEDilol 12.5mg tablet PO ONE (20:45)
[2021-07-28] MEDS ORDERED: carVEDilol 12.5mg tablet PO SCH (20:45)
[2021-07-28] MEDS ORDERED: metoprolol tartrate 1mg/ml inj IV ONE (21:25)
[2021-07-28] MEDS ORDERED: furosemide 10 MG/1 ML 10ml inj IV ONE (22:10)
[2021-07-28 22:42] VITALS: BP 124/91
== END 2021-07-28 23:00 | disposition home or self-care (01) ==
LOC: ER 18:53
DX: R06.02 Shortness of breath (principal); Z20.822 Contact with and (suspected) exposure to COVID-19; R05.9 Cough, unspecified; I48.20 Chronic atrial fibrillation, unspecified; I11.0 Hypertensive heart disease with heart failure; I50.9 Heart failure, unspecified; E78.00 Pure hypercholesterolemia, unspecified; J45.909 Unspecified asthma, uncomplicated; E11.9 Type 2 diabetes mellitus without complications; F12.90 Cannabis use, unspecified, uncomplicated; Z95.0 Presence of cardiac pacemaker; Z88.5 Allergy status to narcotic agent; Z88.8 Allergy status to other drugs, medicaments and biological substances; Z79.2 Long term (current) use of antibiotics; Z79.82 Long term (current) use of aspirin; Z79.899 Other long term (current) drug therapy
CPT/HCPCS: 36415; 71045; 80053; 83605; 83880; 84145; 84484; 85025; 87040; 87635; 93005; 96374; 96375; 99285; C9803; J1940; J3490

== ENCOUNTER 2021-08-01 22:01 | Emergency (ER) | payer MEDICAID ==
[~2021-08-01] VITALS: Ht 167.6 cm; Wt 78.2 kg
[2021-08-01 22:18] VITALS: BP 97/76
[2021-08-01 23:20] LABS: BASOPHILS # (AUTO) 0.1 X10'3 (0-0.2); BASOPHILS % (AUTO) 0.6 % (0-1); EOSINOPHILS % (AUTO) 0.3 % (0-6); HEMATOCRIT 45.6 % (35.0-45.0); HEMOGLOBIN 15.2 g/dl (12.0-16.0); LYMPHOCYTES # (AUTO) 2.7 X10'3 (1.1-4.8); LYMPHOCYTES % (AUTO) 27.5 % (21-51); MEAN CORPUSCULAR HEMOGLOBIN 28.4 PG (27.0-31.0); MEAN CORPUSCULAR HGB CONC 33.4 g/dL (33.0-36.5); MEAN PLATELET VOLUME 9.1 FL (7.4-10.4); MONOCYTES # (AUTO) 0.5 X10'3 (0-0.9); MONOCYTES % (AUTO) 5.5 % (2-12); NEUTROPHILS # (AUTO) 6.5 X10'3 (1.8-7.7); NEUTROPHILS % (AUTO) 66.1 % (42-75); PLATELET COUNT 246 X10'3 (140-440); RED BLOOD COUNT 5.36 X10'6 (4.20-5.60); RED CELL DISTRIBUTION WIDTH 15.4 % (11.5-14.5); WHITE BLOOD COUNT 9.8 X10'3 (4.5-11.0)
[2021-08-01 23:32] LABS: ALANINE AMINOTRANSFERASE 21 U/L (12-78); ALBUMIN 4.2 G/DL (3.4-5.0); ALKALINE PHOSPHATASE 81 IU/L (46-116); ANION GAP 10 (8-16); ASPARTATE AMINO TRANSFERASE 17 U/L (10-37); BILIRUBIN,TOTAL 0.6 MG/DL (0.1-1.0); BLOOD UREA NITROGEN 28 MG/DL (7-18); BUN/CREATININE RATIO 18.9 (6.6-38.0); CALCIUM 9.1 MG/DL (8.5-10.1); CHLORIDE 103 MMOL/L (99-107); CREATININE 1.48 MG/DL (0.40-0.90); GLUCOSE 104 MG/DL (70-104); SODIUM 142 MMOL/L (135-145); TOTAL CARBON DIOXIDE 29.5 MMOL/L (24-32); TOTAL PROTEIN 8.4 G/DL (6.4-8.2); eGFR 36 ML/MIN
[2021-08-02] MEDS ORDERED: potassium Cl 20 mEq SR tablet PO STA (00:10)
--- NOTE | 2021-08-02 00:11 | NUR ---
Critical lab noted. K is 3.0 This publicity writer spoke with SCOTT CONTRERAS and received a verbal order for K Dur 40 mEq PO now. This will be given .
--- NOTE | 2021-08-02 00:23 | NUR ---
Patient complied with taking Rx K Dur.
== END 2021-08-02 07:52 | disposition left against medical advice (07) ==
LOC: ER 22:01
DX: R06.02 Shortness of breath (principal); Z53.21 Procedure and treatment not carried out due to patient leaving prior to being seen by health care provider
CPT/HCPCS: 36415; 71045; 80053; 83880; 84484; 85025; 87635; 93005; C9803